=== PATIENT | male | born 1945 ===

== ENCOUNTER 2021-01-22 07:53 | Outpatient (REF) | payer MEDICARE, SELFPAY ==
[2021-01-22 08:41] LABS: MANUAL DIFF FLAG NO
[2021-01-22 08:49] LABS: Basophils Percent Auto 0.4 % (0-2); Eosinophils Absolute Auto 0.2 X10*3/uL (0.0-0.4); Eosinophils Percent Auto 2.9 % (0-4); Hematocrit 40.3 % (42-52); Hemoglobin 13.1 g/dl (14.0-18.0); Imm Gran Abs Auto 0.02 X10*3/uL (0.00-0.03); Imm Gran Pct Auto 0.3 % (0.0-0.4); Lymphocytes Absolute Auto 2.2 X10*3/uL (1.2-4.9); Lymphocytes Percent Auto 31.6 % (20-40); Mean Corpuscular HGB Conc 32.5 g/dl (31.0-36.0); Mean Corpuscular Hemoglobin 29.2 pg (27.0-33.0); Mean Platelet Volume 11.6 fL (9.4-12.4); Monocytes Absolute Auto 0.5 X10*3/uL (0.1-1.2); Neutrophils Percent Auto 57.8 % (45-73); Platelet Count 207 X10*3/uL (160-400); Red Blood Count 4.48 X10*6/uL (4.60-5.80); Red Cell Distribution Width 12.7 % (11.0-16.0)
[2021-01-22 09:26] LABS: Alanine Aminotransferase 23 U/L (0-40); Albumin Level 4.4 g/dL (3.5-5.0); Anion Gap 12 (12-20); Aspartate Amino Transferase 24 U/L (5-37); Bilirubin Total 0.6 mg/dL (0.0-1.0); Blood Urea Nitrogen 16 mg/dL (9-16); Calcium 9.1 mg/dL (8.4-10.2); Carbon Dioxide 28 mmol/L (22-29); Chloride 106 mmol/L (96-108); Estimated Glomerular Filt Rate > 60; Glucose Random 100 mg/dL (60-115); Sodium 142 mmol/L (135-145); Total Protein 7.2 g/dL (6.5-8.0)
[2021-01-22 09:27] LABS: Alkaline Phosphatase 91 U/L (39-117); Cholesterol 217 mg/dL; HDL Cholesterol 53 mg/dL; LDL Cholesterol Calculated 128 mg/dl; Triglycerides 184 mg/dL
[2021-01-22 09:39] LABS: Prostate Specific Antigen 3.85 ng/mL (<0.05-4.0)
== END 2021-01-22 07:54 | disposition home or self-care (01) ==
LOC: HO.LAB 07:53
PROVIDERS: PCP Internal Medicine; Visit Provider Internal Medicine
DX: Z00.00 Encounter for general adult medical examination without abnormal findings (principal); Z12.5 Encounter for screening for malignant neoplasm of prostate; E78.00 Pure hypercholesterolemia, unspecified; I10 Essential (primary) hypertension; N40.0 Benign prostatic hyperplasia without lower urinary tract symptoms
CPT/HCPCS: 36415; 80053; 80061; 84153; 85025

== ENCOUNTER 2021-12-25 10:40 | Outpatient (REF) | payer MEDICARE, SELFPAY ==
[2021-12-25 10:58] LABS: MANUAL DIFF FLAG NO
[2021-12-25 11:27] LABS: Basophils Percent Auto 0.4 % (0-2); Eosinophils Absolute Auto 0.2 X10*3/uL (0.0-0.4); Hematocrit 41.4 % (42.0-52.0); Imm Gran Abs Auto 0.03 X10*3/uL (0.00-0.03); Imm Gran Pct Auto 0.4 % (0.0-0.4); Lymphocytes Absolute Auto 2.3 X10*3/uL (1.2-4.9); Lymphocytes Percent Auto 29.1 % (20-40); Mean Corpuscular HGB Conc 33.8 g/dl (31.0-36.0); Mean Corpuscular Volume 88.7 fL (80.0-98.0); Mean Platelet Volume 11.9 fL (9.4-12.4); Monocytes Absolute Auto 0.5 X10*3/uL (0.1-1.2); Monocytes Percent Auto 6.4 % (2-11); Neutrophils Absolute Auto 4.7 x10*3/uL (2.0-8.3); Neutrophils Percent Auto 60.7 % (45-73); Platelet Count 206 X10*3/uL (160-400); Red Blood Count 4.67 X10*6/uL (4.60-5.80); Red Cell Distribution Width 12.5 % (11.0-16.0); White Blood Count 7.8 X10*3/uL (4.8-10.8)
[2021-12-25 11:51] LABS: Alanine Aminotransferase 22 U/L (0-40); Albumin Level 4.2 g/dL (3.5-5.0); Alkaline Phosphatase 100 U/L (39-117); Anion Gap 11 (12-20); Aspartate Amino Transferase 23 U/L (5-37); Bilirubin Total 0.4 mg/dL (0.0-1.0); Blood Urea Nitrogen 19 mg/dL (9-16); Calcium 9.4 mg/dL (8.4-10.2); Carbon Dioxide 29 mmol/L (22-29); Chloride 106 mmol/L (96-108); Cholesterol 224 mg/dL; Estimated Glomerular Filt Rate > 60; Glucose Random 99 mg/dL (60-115); HDL Cholesterol 45 mg/dL; LDL Cholesterol Calculated 154 mg/dl; Potassium 4.3 mmol/L (3.3-5.1); Sodium 142 mmol/L (135-145); Total Protein 7.3 g/dL (6.5-8.0); Triglycerides 126 mg/dL
[2021-12-25 12:31] LABS: Vitamin B12 222 pg/mL (200-900)
== END 2021-12-25 10:41 | disposition home or self-care (01) ==
LOC: HO.LAB 10:40
PROVIDERS: PCP Internal Medicine; Visit Provider Internal Medicine
DX: E78.00 Pure hypercholesterolemia, unspecified (principal); I10 Essential (primary) hypertension
CPT/HCPCS: 36415; 80053; 80061; 82607; 85025

== ENCOUNTER 2022-04-07 07:25 | Outpatient (REF) | payer MEDICARE, SELFPAY ==
[2022-04-07 08:57] LABS: Alanine Aminotransferase 33 U/L (0-40); Albumin Level 4.1 g/dL (3.5-5.0); Alkaline Phosphatase 114 U/L (39-117); Anion Gap 11 (12-20); Aspartate Amino Transferase 27 U/L (5-37); Bilirubin Total 0.3 mg/dL (0.0-1.0); Blood Urea Nitrogen 23 mg/dL (9-16); Calcium 9.1 mg/dL (8.4-10.2); Carbon Dioxide 26 mmol/L (22-29); Chloride 109 mmol/L (96-108); Cholesterol 157 mg/dL; Estimated Glomerular Filt Rate > 60; Glucose Random 99 mg/dL (60-115); HDL Cholesterol 51 mg/dL; LDL Cholesterol Calculated 95 mg/dl; Potassium 3.9 mmol/L (3.3-5.1); Sodium 142 mmol/L (135-145); Total Protein 6.7 g/dL (6.5-8.0); Triglycerides 57 mg/dL
[2022-04-07 09:20] LABS: Prostate Specific Antigen 3.48 ng/mL (<0.05-4.0)
== END 2022-04-07 07:26 | disposition home or self-care (01) ==
LOC: HO.LAB 07:25
PROVIDERS: PCP Internal Medicine; Visit Provider Internal Medicine
DX: Z00.00 Encounter for general adult medical examination without abnormal findings (principal); Z12.5 Encounter for screening for malignant neoplasm of prostate; E78.00 Pure hypercholesterolemia, unspecified; I10 Essential (primary) hypertension; N40.0 Benign prostatic hyperplasia without lower urinary tract symptoms
CPT/HCPCS: 36415; 80053; 80061; 84153

== ENCOUNTER 2022-07-01 09:56 | Outpatient (AMB) | payer MEDICARE, SELFPAY ==
--- NOTE | 2022-06-30 15:15 | MHC.OFFVIS ---
Intake Intake Visit Reasons: BPH w/ Luts Intake Note: Patient is present for BPH W lower urinary tract symptoms Patient is on tamsulosin Post Void Residual reports: 0ml Ginning Operator Required: No Accompanied by: Self / Same As Patient Allergies No Known Allergies Allergy (Verified 01/05/24 11:35) HPI HPI Comments History of Present Illness Details Philippe is a pleasant male. He is a patient of Dr. Ordonez. He is seen for the following urologic conditions - lower urinary tract symptoms Lower urinary tract symptoms Urinary parameters includes nocturia times 3-4, urge, stream is okay Current therapy tamsulosin intermittent PSA 04/18 3.5 Encouraged to take his Flomax every evening Review in 3 months FOR[facility]LY [facility] Medical History (Updated 12/22/23 @ 15:29 by LEONCIO Bartlett) High cholesterol BPH (benign prostatic hyperplasia) GERD (gastroesophageal reflux disease) HTN (hypertension) Surgical History (Updated 01/05/24 @ 11:35 by Eliane Kelley) History of prostate surgery Hx of exploratory laparotomy History of laryngoscopy H/O colonoscopy Social History 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 Do you presently have visiting nurse or other home services: No Patient Tobacco Use Status: Never used Tobacco Review of Systems Const Denies chills and Denies fever(s) Card Reports no additional complaints and Denies syncope Resp Denies cough GI Denies abdominal pain and Denies heartburn Reports as per HPI and Denies change in libido Neuro Denies syncope Psych Denies change in libido Endo Denies change in libido Physical Exam Const General: cooperative, healthy appearing, comfortable and no acute distress Orientation/consciousness: patient oriented x3 HEENT Face and sinus: Yes normal facial exam Mouth: moist mucous membranes Neck Neck: Yes normal visual inspection, Yes full ROM and Yes trachea midline Chest Chest palpation & inspection: normal inspection of the chest Resp Effort & Inspection: normal respiratory effort, able to speak in complete sentences and no respiratory distress GI Inspection: Yes normal to inspection Back/Spine/Pelvis Cervical Spine: normal cervical lordosis Thoracic/Lumbar Spine: thoracic and lumbar spine normal to inspection Skin General skin exam: no rashes or lesions noted Neuro General: patient oriented x3, gait normal, tone normal and moves all extremities Extrem General: Yes normal to inspection and Yes capillary refill normal Office Procedures Post Void Residual Post Residual Void Post Void Residual (PVR): 0 52363-[id number] Void Residual by ultrasound Results AMB Urinalysis, Automated UA Leukoctes 0 Garrett/uL Last Edit by Abbey Long, A on 07/01/22 10:26 UA Nitrite Negative Last Edit by Abbey Long, A on 07/01/22 10:26 UA Urobilinogen 0.2 mg/dL Last Edit by Abbey Long A on 07/01/22 10:26 UA Protein 0 mg/dL Last Edit by Abbey Long, A on 07/01/22 10:26 UA pH 6.0 Last Edit by Abbey Long, A on 07/01/22 10:26 UA Blood 0 Moo/uL Last Edit by Abbey Long, A on 07/01/22 10:26 UA Specific [place] 1.025 Last Edit by Abbey Long A on 07/01/22 10:26 UA Ketone Negative Last Edit by Abbey Long, A on 07/01/22 10:26 UA Bilirubin 0 mg/dL Last Edit by Abbey Long A on 07/01/22 10:26 UA Glucose 0 mg/dL Last Edit by Abbey Long, A on 07/01/22 10:26 Results Reviewed Results Reviewed: Laboratory Last Values Urine pH (Auto) 6.0 07/01/22 10:18 Specific [place] (Auto) 1.025 07/01/22 10:18 Urine Protein (Auto) 0 mg/dL 07/01/22 10:18 Glucose (UA)(Auto) 0 mg/dL 07/01/22 10:18 Urine Ketones (Auto) Negative 07/01/22 10:18 Urine Blood (Auto) 0 Moo/uL 07/01/22 10:18 Urine Nitrite (Auto) Negative 07/01/22 10:18 Urine Bilirubin (Auto) 0 mg/dL 07/01/22 10:18 Urine Urobilinogen (Auto) 0.2 mg/dL 07/01/22 10:18 Leukocyte Esterase (Auto) 0 Garrett/uL 07/01/22 10:18 Assessment & Plan Assessment & Plan (1) Urinary urgency: Code(s): R39.15 - Urgency of urination (2) Nocturia more than twice per night: Code(s): R35.1 - Nocturia (3) BPH (benign prostatic hyperplasia): Code(s): N40.0 - Benign prostatic hyperplasia without lower urinary tract symptoms Plan Trial medications three-month follow-up Orders: Orders AMB Post Void Residual by ultrasound 07/01/22 N40.0 - Benign prostatic hyperplasia without lower urinary tract symptoms AMB Urinalysis Automated 07/01/22 Z13.9 - Encounter for screening, unspecified Patient Instructions: Imaging studies, laboratory and physical exam results were discussed and reviewed in detail. No major barriers to patient understanding were identified. An opportunity to ask questions regarding the treatment plan was provided. All questions were answered. The patient expressed understanding and agreement with the above treatment plan. The patient is aware they should contact our office by phone for worsening of their current condition or the appearance of new urologic symptoms. Compliance is encouraged with any medications and followup testing that is ordered. It is a privilege to participate in the urologic care of your patient. If you have any questions or concerns regarding treatment for the above conditions, or other urologic issues, please do not hesitate to contact me. The office telephone contact is [phone]. This note is constructed using voice recognition software. While every effort has been made to ensure accuracy spout positioner errors may have been included. Yours sincerely, Dr Mandeep Espana MD, [facility] - Urology Providers of Expert, Compassionate Care for the Genitourinary System Coding Level of Care Code Est Pt Level 4 (93086) Diagnoses Urinary urgency R39.15 Nocturia more than twice per night R35.1 BPH (benign prostatic hyperplasia) N40.0 CPT Codes Post Residual Void - PVR CPT Code: 24542-Crah Void Residual by ultrasound ([id number])
== END 2022-07-01 11:05 | disposition home or self-care (01) ==
LOC: HO.HUSH 09:56
PROVIDERS: PCP Internal Medicine; Visit Provider Urology
DX: R39.15 Urgency of urination (principal); R35.1 Nocturia; N40.0 Benign prostatic hyperplasia without lower urinary tract symptoms
CPT/HCPCS: 99499

== ENCOUNTER → 2022-07-01 09:56 | Outpatient (BNVA) | payer MEDICARE, SELFPAY | PROVIDERS: PCP Internal Medicine; Visit Provider Urology | DX: Z13.89 Encounter for screening for other disorder (principal) | CPT/HCPCS: 51798 ==

== ENCOUNTER → 2023-02-03 08:34 | Outpatient (BNVA) | payer MEDICARE, SELFPAY | PROVIDERS: PCP Internal Medicine; Visit Provider Urology | DX: N40.1 Benign prostatic hyperplasia with lower urinary tract symptoms (principal); R39.11 Hesitancy of micturition; R35.1 Nocturia | CPT/HCPCS: 51798; 99212 ==

== ENCOUNTER → 2023-04-07 09:45 | Outpatient (BNVA) | payer MEDICARE, SELFPAY | PROVIDERS: PCP Internal Medicine; Visit Provider Urology | DX: N40.1 Benign prostatic hyperplasia with lower urinary tract symptoms (principal); N13.8 Other obstructive and reflux uropathy; R35.1 Nocturia; R39.11 Hesitancy of micturition | CPT/HCPCS: 52000; 99212 ==

== ENCOUNTER 2023-06-16 10:33 | Outpatient (AMB) | payer MEDICARE, SELFPAY ==
--- NOTE | 2023-06-16 10:35 | MHC.OFFVIS ---
Intake Intake Visit Reasons: H&P (Greenlight 07/25) Intake Note: Patient presents for H&P Green light procedure Urology Medications: Terazosin, Finasteride Antibiotic Allergy: None Blood Thinner: none PVR:55ml's Tool Liaison Required: No Accompanied by: Self / Same As Patient Allergies No Known Allergies Allergy (Verified 06/16/23 10:36) HPI HPI Comments History of Present Illness Details Philippe is a pleasant male. He is a patient of Dr. Ordonez. He is seen for the following urologic conditions - lower urinary tract symptoms Preop assessment Primary nocturia times 3-4 Urinary hesitancy Minimal benefit changing from tamsulosin to terazosin Cystoscopy mild trilobar hypertrophy Recommend GreenLight laser Not much different after starting finasteride Questions answered around GreenLight laser Lower urinary tract symptoms Urinary parameters includes nocturia times 3-4, urge, stream is okay Current therapy tamsulosin intermittent PSA 04/18 3.5 PFSH Medical History (Updated 02/03/23 @ 09:10 by Mandeep Espana MD) BPH (benign prostatic hyperplasia) GERD (gastroesophageal reflux disease) High cholesterol HTN (hypertension) Review of Systems Const Denies chills and Denies fever(s) Card Reports no additional complaints and Denies syncope Resp Denies cough GI Denies abdominal pain and Denies heartburn Reports as per HPI and Denies change in libido Neuro Denies syncope Psych Denies change in libido Endo Denies change in libido Physical Exam Const General: cooperative, healthy appearing, comfortable and no acute distress Orientation/consciousness: patient oriented x3 HEENT Face and sinus: Yes normal facial exam Mouth: moist mucous membranes Neck Neck: Yes normal visual inspection, Yes full ROM and Yes trachea midline Chest Chest palpation & inspection: normal inspection of the chest Resp Effort & Inspection: normal respiratory effort, able to speak in complete sentences and no respiratory distress GI Inspection: Yes normal to inspection Back/Spine/Pelvis Cervical Spine: normal cervical lordosis Thoracic/Lumbar Spine: thoracic and lumbar spine normal to inspection Skin General skin exam: no rashes or lesions noted Neuro General: patient oriented x3, gait normal, tone normal and moves all extremities Extrem General: Yes normal to inspection and Yes capillary refill normal Office Procedures Post Void Residual Post Residual Void Post Void Residual (PVR): 55 [id number] Void Residual by ultrasound Results AMB Urinalysis, Automated UA Leukoctes 0 Garrett/uL Last Edit by Enzo Bradshaw on 06/16/23 11:00 UA Nitrite Negative Last Edit by Enzo Bradshaw on 06/16/23 11:00 UA Urobilinogen 0.2 mg/dL Last Edit by Enzo Bradshaw on 06/16/23 11:00 UA Protein 15 mg/dL Last Edit by Enzo Bradshaw on 06/16/23 11:00 UA pH 5.5 Last Edit by Enzo Augustinamax on 06/16/23 11:00 UA Blood 25 Moo/uL Last Edit by Enzo Bradshaw on 06/16/23 11:00 UA Specific [place] 1.025 Last Edit by Enzo Bradshaw on 06/16/23 11:00 UA Ketone Negative Last Edit by Enzo Bradshaw on 06/16/23 11:00 UA Bilirubin 0 mg/dL Last Edit by Enzo Bradshaw on 06/16/23 11:00 UA Glucose 0 mg/dL Last Edit by Enzo Bradshaw on 06/16/23 11:00 Results Reviewed Results Reviewed: Laboratory Last Values Urine pH (Auto) 5.5 06/16/23 10:47 Specific [place] (Auto) 1.025 06/16/23 10:47 Urine Protein (Auto) 15 mg/dL 06/16/23 10:47 Glucose (UA)(Auto) 0 mg/dL 06/16/23 10:47 Urine Ketones (Auto) Negative 06/16/23 10:47 Urine Blood (Auto) 25 Moo/uL 06/16/23 10:47 Urine Nitrite (Auto) Negative 06/16/23 10:47 Urine Bilirubin (Auto) 0 mg/dL 06/16/23 10:47 Urine Urobilinogen (Auto) 0.2 mg/dL 06/16/23 10:47 Leukocyte Esterase (Auto) 0 Garrett/uL 06/16/23 10:47 Assessment & Plan Assessment & Plan (1) Urinary hesitancy: Code(s): R39.11 - Hesitancy of micturition (2) BPH (benign prostatic hyperplasia): Code(s): N40.0 - Benign prostatic hyperplasia without lower urinary tract symptoms Plan Six month follow-up Orders: Orders Urine Cytology Today N40.0 - Benign prostatic hyperplasia without lower urinary tract symptoms AMB Urinalysis Automated Today Z13.9 - Encounter for screening, unspecified AMB Post Void Residual by ultrasound Today N40.0 - Benign prostatic hyperplasia without lower urinary tract symptoms Patient Instructions: Imaging studies, laboratory and physical exam results were discussed and reviewed in detail. No major barriers to patient understanding were identified. An opportunity to ask questions regarding the treatment plan was provided. All questions were answered. The patient expressed understanding and agreement with the above treatment plan. The patient is aware they should contact our office by phone for worsening of their current condition or the appearance of new urologic symptoms. Compliance is encouraged with any medications and followup testing that is ordered. It is a privilege to participate in the urologic care of your patient. If you have any questions or concerns regarding treatment for the above conditions, or other urologic issues, please do not hesitate to contact me. The office telephone contact is [phone]. This note is constructed using voice recognition software. While every effort has been made to ensure accuracy human resources services specialist errors may have been included. Yours sincerely, Dr Mandeep Espana MD, [facility] - Urology Providers of Expert, Compassionate Care for the Genitourinary System Coding Level of Care Code Est Pt Level 3 (31156) Diagnoses Urinary hesitancy R39.11 BPH (benign prostatic hyperplasia) N40.0 CPT Codes Post Residual Void - PVR CPT Code: 09998-Oicg Void Residual by ultrasound ([id number])
== END 2023-06-16 11:29 | disposition home or self-care (01) ==
PROVIDERS: Visit Provider Urology
DX: R39.11 Hesitancy of micturition (principal); N40.0 Benign prostatic hyperplasia without lower urinary tract symptoms
CPT/HCPCS: 99213

== ENCOUNTER 2023-06-16 10:33 | Outpatient (REF) | payer MEDICARE, SELFPAY ==
[2023-06-16 18:07] LABS: Urine Cytology See Pathology rpt
== END 2023-06-16 10:34 | disposition home or self-care (01) ==
LOC: HO.LNP 10:33
PROVIDERS: Visit Provider Urology
DX: N40.0 Benign prostatic hyperplasia without lower urinary tract symptoms (principal); R39.11 Hesitancy of micturition
CPT/HCPCS: 51798; 88112; 99212

== ENCOUNTER 2023-07-04 06:00 | Day surgery (SDC) | payer MEDICARE, SELFPAY ==
[2023-06-29 11:58] VITALS: BMI 25.7
[2023-07-04] VITALS (8 sets, daily range): BP systolic 157–177; BP diastolic 68–80; PULSE 53–68; RESP 14–20; TEMP 36.2–36.8; O2SAT 94–100
--- NOTE | 2023-07-04 07:44 | MHC.SHP ---
Pre-Procedural Eval Section A Date of Service: 07/04/23 The patient is an INPATIENT: No Changes since office visit: No Cold of Flu in the past 2 weeks, No New Medical Problems, No Changes in Medication and No Patient answered all questions The History & Physical has been completed within 30 days and I have reviewed it.: Yes Section B Chief Complaint: Benign prostatic hyperplasia without lower urinary Relevant Social History: None Present Medications: None Medical History: No relevant PMH History of Previous Operations: No relevant previous surgery Allergies: Allergies Allergy/AdvReac Type Severity Reaction Status Date / Time No Known Allergies Allergy Verified 06/16/23 10:36 Review of Systems Sugical H&P ROS: Negative: Constitution, Cardiovascular, Respiratory, Neurological, Psychiatric, Hem-Onc, Allergic/Immunologic, Gastrointestinal, Genitourinary, Musculoskeletal, Integumentary, Endocrine and Eyes/Ears/Nose/Throat Exam Surgical H&P Exam: Normal: HEENT, Normal: Heart, Normal: Lungs, Normal: Extremities, Normal: Abdomen, Normal: Skin and Normal: Neurological Plan Diagnosis/Plan: Unchanged (laser prostatectomy) I have reviewed the history and physical and performed a pertinent physical examination on my patient. No changes have occurred unless specified. Time Spent With Patient Time: Total time managing care of this patient today ____ minutes.
--- NOTE | 2023-07-04 08:05 | HO.ANESPROP2 ---
[facility] Active Problems Active Problems: All Active Problems (Updated 02/03/23 @ 09:10 by Mandeep Espana MD) Urinary hesitancy (Acute) Nocturia more than twice per night (Acute) BPH (benign prostatic hyperplasia) (Acute) Past Medical History Medical History (Updated 02/03/23 @ 09:10 by Mandeep Espana MD) BPH (benign prostatic hyperplasia) GERD (gastroesophageal reflux disease) High cholesterol HTN (hypertension) Family History Family history of problems with anesthesia: No Surgical History Surgical History (Updated 06/29/23 @ 11:51 by Nell Mireles RN) H/O colonoscopy History of laryngoscopy Hx of exploratory laparotomy History of Problems with Anesthesia: No Social History Social History 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 If so, by whom?: No Are you DNR?: No Advance Directives: No Advance Directives Information Provided: Yes Recently lost weight without trying: No Eating poorly because of decreased appetite: No Nutrition Risks: No Nutritional Risk Meds Allergies Allergy/AdvReac Type Severity Reaction Status Date / Time No Known Allergies Allergy Verified 06/16/23 10:36 Active Medications: Current Medications Levofloxacin (Levaquin) 500 mg in 100 mls @ 100 mls/hr IV PREOP ONE Stop: 07/04/23 08:41 Home Medications Medication Instructions Recorded Confirmed Last Taken Type atorvastatin 20 mg tablet 20 mg PO DAILY 06/30/22 06/29/23 Unknown History cyclobenzaprine 5 mg tablet 5 mg PO BEDTIME 06/30/22 02/03/23 Unknown History diclofenac sodium 75 mg 75 mg PO BID 06/30/22 02/03/23 Unknown History tablet,delayed release losartan 100 1 tab PO DAILY 06/30/22 06/29/23 Unknown History mg-hydrochlorothiazide 25 mg tablet tamsulosin 0.4 mg capsule 0.4 mg PO DAILY 06/16/23 06/29/23 Unknown History Exam Exam Date and Time: July 04, 2023 0805 Height,Weight and Vital Signs: Height 5 ft 4 in Weight 68.039 kg Last Vital Signs Temp 97.7 F 07/04/23 06:44 Pulse 55 07/04/23 06:44 Resp 18 07/04/23 06:44 BP 168/80 H 07/04/23 06:44 Pulse Ox 99 07/04/23 06:44 O2 Del Method Room Air 07/04/23 06:44 Airway Mallampati Class: II TM Dist: >3cm Neck ROM: Full Partial: Upper Assessment and Plan Assessment Anesthesia Assessment: Anesthesia Plan Discussed and Chart Reviewed Final Anesthetic Review Family History of Problems with Anesthesia: No History of Problems with Anesthesia: No NPO: Yes ASA Class: II Final Preanesthetic Review: No Changes in Pt Med Stat, Meds/Allgs Chart Reviewed, Consent Obtained/Reviewed and Anes Risks/Benef Reviewed Patient Risk: Intermediate Procedure Risk: Low Anesthetic Plan Anesthetic Plan: GA Disposition: Standard PACU
--- NOTE | 2023-07-04 08:41 | P.OP_ITS ---
Operative Note Operative Note Date of Service: 07/04/23 Narrative: PreOperative Diagnosis: Bladder outlet obstruction Post Operative Diagnosis: Bladder outlet obstruction Procedure: GreenLight Laser Enucleation of the prostate Surgeon: Dr Mandeep Espana Anesthesia: General Indications for procedure: [] History of bladder outlet obstruction. Treated with alpha-burt and other medications. Still with symptoms. On cystoscopy in office has [trilobar prostate] [tight bladder neck]. Recommendation for prostate procedure with laser enucleation of prostate. Risks and benefits have been discussed. Focus was placed on development of retrograde ejaculation which is a normal part of this procedure. Procedure: After informed consent was verified the patient was brought to the operating room and placed in a supine position. Anesthesia was administered per protocol. Patient was placed in modified dorsal lithotomy position and prepped and draped in a sterile fashion. Safety pause time-out was confirmed. Antibiotics have been given. A Twenty-four Yoruba laser cystoscope was inserted per urethra. No abnormalities were found of the anterior and bulbar urethra. The bladder was examined and both ureteric orifices were seen in their normal positions away from the area of interest. however they were closer than typical and great care was taken throughout the procedure to ensure they remained visible. Using a GreenLight laser with settings of 80 w incisions were made at the 5 and 7 o'clock position. The incisions were taken down from the bladder neck down to the level of the veru. These were gradually deepened in order to define the lateral aspects of the median lobe area. Once clearly defined they will also extended in the lateral directions in order to create a deep groove. Minimal median lobe was apparent. Decision was made to focus on the lateral l obe areas. Once the median lobe area had been cleared attention was directed to the lateral lobes. Starting with the patient's left lateral lobe. First the 05:00 o'clock groove was further developed. This was moved in the lateral direction to undermine the tissue on the lateral side running from the bladder neck to the prostate apex. Focus was then placed on the laser at the 1 o'clock position to developing a secondary groove down to the level of bladder fibers. The creation of a second deep groove defined a segment of intervening tissue similar to a slice of orange. At the apex of the prostate the 2 grooves were linked the us releasing the intervening tissue. This tissue was then removed with a combination of enucleation and ablation working from the apex toward the bladder neck. A similar procedure was repeated on the patient's right-hand side. The only differences being the position of the lateral groove at he 7 'oclock positioin and the secondary groove at the 11 o'clock position, Otherwise the procedure was developed in a mirror fashion. After the majority of tissue had been debulked remnant tissue was ablated with the side fire laser and the curve of the prostate followed up each side wall clearly defining the anterior remnant strip that remained between the 11 and 1 o'clock positions. In this case the anterior tissue protruded into the prostatic fossa and was partially ablated with the laser When this was had been completed debris and pieces of prostate were removed from the bladder with irrigation. Both ureteric orifices were reviewed again in shown to be patent in away from any areas of energy damage. The apical area was reviewed in any stray ooze was controlled. A 22 Yoruba 30 cc balloon Aguilar catheter was placed over a stylet into the bladder. Clear efflux was obtained upopn irrigation with a Yin piston syringe. 30 cc was placed in the balloon and gentle traction was placed. A snap was used to hold tension on the catheter to control bleeding during patient moved and transported. A drainage bag was placed. Once transportation is complete to the PACU the snap will be removed. The patient tolerated the procedure well, he was extubated in the operating and transferred in a stable condition to the recovery area. Total Power 118 kW Lasing time 17:20 Pathology: Prostate tissue Drains: Aguilar catheter
[2023-07-04] MEDS: fentaNYL citrate/PF 100 MCG/2 ML VIAL 50 MCG IVPUSH (08:56)
[2023-07-04] MEDS: oxyCODONE HCl Immed Release 5 MG TABLET PO (08:59)
== END 2023-07-04 10:41 | disposition home or self-care (01) ==
PROVIDERS: PCP Internal Medicine; Visit Provider Urology
PROC: (CPT 52648; principal; 2023-07-04 07:30)
DX: N40.1 Benign prostatic hyperplasia with lower urinary tract symptoms (principal); N13.8 Other obstructive and reflux uropathy; R39.11 Hesitancy of micturition; R35.1 Nocturia; I10 Essential (primary) hypertension; E78.00 Pure hypercholesterolemia, unspecified; K21.9 Gastro-esophageal reflux disease without esophagitis
CPT/HCPCS: 52649; 88305; J1100; J1956; J2250; J2405; J3010

== ENCOUNTER → 2023-07-04 06:00 | Outpatient (BNV) | payer MEDICARE, SELFPAY | PROVIDERS: PCP Internal Medicine; Visit Provider Urology | DX: N32.0 Bladder-neck obstruction (principal) | CPT/HCPCS: 52649 ==

== ENCOUNTER 2023-07-20 11:12 | Outpatient (REF) | payer MEDICARE, SELFPAY ==
[2023-07-20 12:33] LABS: Appearance Urine Cloudy; Color Urine Yellow; Glucose Urine UA Negative (Negative); Leukocyte Esterase Urine Small (1+) (Negative); Nitrite Urine Negative (Negative); PH 5.5 (5.0-9.0); UMIC TRIGGER UA YES; Urine Blood Large (3+) (Negative); Urine Ketones Negative (Negative); Urine Protein 100 (2+) mg/dL (Neg-Trace)
[2023-07-20 12:35] LABS: Bacteria Urine None Seen (None Seen); Hyaline Casts Urine 0-2 /LPF (0-2); RBC Urine >20 /HPF (0-2); Squamous Epithelial Cell Urine 0-2 /HPF (0-2); WBC Urine 21-50 /HPF (0-5)
== END 2023-07-20 11:13 | disposition home or self-care (01) ==
LOC: HO.LAB 11:12
PROVIDERS: PCP Internal Medicine; Visit Provider Nurse Practitioner Family
DX: N40.0 Benign prostatic hyperplasia without lower urinary tract symptoms (principal)
CPT/HCPCS: 81001; 87086

== ENCOUNTER 2023-08-18 09:02 | Outpatient (AMB) | payer MEDICARE, SELFPAY ==
--- NOTE | 2023-08-18 09:11 | A.OFFVIS_ITS ---
Intake Intake Visit Reasons: 6w post op Intake Note: Patient is present for Follow Up Post Op Urology Med: Terazosin, Tamsulosin, Finasteride Antibiotic Allergy: None Blood Thinner: None Pharmacy: [facility] PVR:60 Allergies No Known Allergies Allergy (Verified 08/18/23 09:17) HPI HPI Comments History of Present Illness Details Philippe is a pleasant male. He is a patient of Dr. Ordonez. He is seen for the following urologic conditions - lower urinary tract symptoms PVR check for incomplete bladder emptying following procedure PVR 60 cc Nocturia x3 which is improving Good stream Happy with procedure Six month follow-up PSA May try coming off medications Lower urinary tract symptoms Urinary parameters includes nocturia times 3-4, urge, stream is okay Current therapy terazosin - intervention 06/19 GreenLight laser PSA 04/18 3.5 PFSH Medical History High cholesterol BPH (benign prostatic hyperplasia) GERD (gastroesophageal reflux disease) HTN (hypertension) Surgical History Hx of exploratory laparotomy History of laryngoscopy H/O colonoscopy Social History Are you a primary home care associate to a significant other at home: Yes Do you presently have visiting nurse or other home services: No Patient Tobacco Use Status: Never used Tobacco Review of Systems Const Denies chills and Denies fever(s) Card Reports no additional complaints and Denies syncope Resp Denies cough GI Denies abdominal pain and Denies heartburn Reports as per HPI and Denies change in libido Neuro Denies syncope Psych Denies change in libido Endo Denies change in libido Physical Exam Const General: cooperative, healthy appearing, comfortable and no acute distress Orientation/consciousness: patient oriented x3 HEENT Face and sinus: Yes normal facial exam Mouth: moist mucous membranes Neck Neck: Yes normal visual inspection, Yes full ROM and Yes trachea midline Chest Chest palpation & inspection: normal inspection of the chest Resp Effort & Inspection: normal respiratory effort, able to speak in complete sentences and no respiratory distress GI Inspection: Yes normal to inspection Back/Spine/Pelvis Cervical Spine: normal cervical lordosis Thoracic/Lumbar Spine: thoracic and lumbar spine normal to inspection Skin General skin exam: no rashes or lesions noted Neuro General: patient oriented x3, gait normal, tone normal and moves all extremities Extrem General: Yes normal to inspection and Yes capillary refill normal Office Procedures Post Void Residual Post Residual Void Post Void Residual (PVR): 60 [id number] Void Residual by ultrasound Results AMB Urinalysis, Automated UA Leukoctes 125 Garrett/uL Last Edit by Abbey Long [facility] on 08/18/23 09:21 UA Nitrite Negative Last Edit by Abbey Long [facility] on 08/18/23 09:21 UA Urobilinogen 0.2 mg/dL Last Edit by Abbey Long A on 08/18/23 09:2 1 UA Protein 100 mg/dL Last Edit by Abbey Long [facility] on 08/18/23 09:21 UA pH 6.0 Last Edit by Abbey Long A on 08/18/23 09:21 UA Blood 200 Moo/uL Last Edit by Abbey Long [facility] on 08/18/23 09:21 UA Specific [place] 1.030 Last Edit by Abbey Long A on 08/18/23 09: 21 UA Ketone Negative Last Edit by Abbey Long [facility] on 08/18/23 09:21 UA Bilirubin 0 mg/dL Last Edit by Abbey Long [facility] on 08/18/23 09:21 UA Glucose 0 mg/dL Last Edit by Abbey Long [facility] on 08/18/23 09:21 Results Reviewed Results Reviewed: Laboratory Last Values Urine pH (Auto) 6.0 08/18/23 09:18 Specific [place] (Auto) 1.030 08/18/23 09:18 Urine Protein (Auto) 100 mg/dL 08/18/23 09:18 Glucose (UA)(Auto) 0 mg/dL 08/18/23 09:18 Urine Ketones (Auto) Negative 08/18/23 09:18 Urine Blood (Auto) 200 Moo/uL 08/18/23 09:18 Urine Nitrite (Auto) Negative 08/18/23 09:18 Urine Bilirubin (Auto) 0 mg/dL 08/18/23 09:18 Urine Urobilinogen (Auto) 0.2 mg/dL 08/18/23 09:18 Leukocyte Esterase (Auto) 125 Garrett/uL 08/18/23 09:18 Assessment & Plan Assessment & Plan (1) BPH (benign prostatic hyperplasia): Code(s): N40.0 - Benign prostatic hyperplasia without lower urinary tract symptoms (2) Nocturia more than twice per night: Code(s): R35.1 - Nocturia Plan Six month follow-up PSA PVR Orders: Orders AMB Post Void Residual by ultrasound Today N40.0 - Benign prostatic hyperplasia without lower urinary tract symptoms AMB Urinalysis Automated Today Z13.9 - Encounter for screening, unspecified Prostate Specific Antigen 6 Months N40.0 - Benign prostatic hyperplasia without lower urinary tract symptoms Patient Instructions: Imaging studies, laboratory and physical exam results were discussed and reviewed in detail. No major barriers to patient understanding were identified. An opportunity to ask questions regarding the treatment plan was provided. All questions were answered. The patient expressed understanding and agreement with the above treatment plan. The patient is aware they should contact our office by phone for worsening of their current condition or the appearance of new urologic symptoms. Compliance is encouraged with any medications and followup testing that is ordered. It is a privilege to participate in the urologic care of your patient. If you have any questions or concerns regarding treatment for the above conditions, or other urologic issues, please do not hesitate to contact me. The office telephone contact is [phone]. This note is constructed using voice recognition software. While every effort has been made to ensure accuracy ball maker errors may have been included. Yours sincerely, Dr Mandeep Espana MD, [facility] - Urology Providers of Expert, Compassionate Care for the Genitourinary System Coding Level of Care Code Est Pt Level 3 (69076) Diagnoses BPH (benign prostatic hyperplasia) N40.0 Nocturia more than twice per night R35.1 CPT Codes Post Residual Void - PVR CPT Code: 60587-Iybx Void Residual by ultrasound ([id number])
== END 2023-08-18 09:35 | disposition home or self-care (01) ==
PROVIDERS: PCP Internal Medicine; Visit Provider Urology
DX: N40.0 Benign prostatic hyperplasia without lower urinary tract symptoms (principal); R35.1 Nocturia; Z13.9 Encounter for screening, unspecified
CPT/HCPCS: 99024

== ENCOUNTER → 2023-08-18 09:02 | Outpatient (BNVA) | payer MEDICARE, SELFPAY | PROVIDERS: PCP Internal Medicine; Visit Provider Urology | DX: N40.1 Benign prostatic hyperplasia with lower urinary tract symptoms (principal); R35.1 Nocturia | CPT/HCPCS: 51798; 81003; 99212 ==

== ENCOUNTER 2023-11-10 13:43 | Outpatient (AMB) | payer MEDICARE, SELFPAY ==
--- NOTE | 2023-11-10 14:12 | MHC.OFFVIS ---
Intake Intake Visit Reasons: Frequency/Urgency/PVR Intake Note: Patient is present for Follow Up BPH Urology Med: none Blood Thinner: None PVR: 62ml's Steward/Stewardess Third Required: Yes Accompanied by: Self / Same As Patient Allergies No Known Allergies Allergy (Verified 11/10/23 14:52) Medication List - Last Reconc[facility] 11[facility]10[facility]23 [facility] mirabegron ER (Myrbetriq) 25 mg PO DAILY 30 days HPI HPI Comments History of Present Illness Details Ramsey is a very pleasant [place] male patient of Dr. Ordonez. He has a PMH of hypercholesteromia, BPH, GERD, and hypertension. He presents to the office today for a follow up of his lower urinary tract symptoms. Of note, patient s/p green light laser with Dr. Espana 06/19. When asked he reports feeling his urinary symptoms are worse than he has been previously experiencing. He reports nocutira, urinary urgency, and urinary frequency. He denies incontinence, hematuria, dysuria, foul smelling urine, changes to urinary stream, flank pain, fever, and or chills. In office urinalysis results reviewed with the patient. PVR 62ml's. He discusses not being on any urological medications at this time. He also reports that he is not taking his regular medications as he does not feel this is necessary at this time. Discussed at length potential causes for lower urinary tract symptoms patient is experiencing. Discussed and stressed the importance of drinking plenty of water daily. 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 He otherwise offers no other issues or concerns at this time. [facility] Medical History High cholesterol BPH (benign prostatic hyperplasia) GERD (gastroesophageal reflux disease) HTN (hypertension) Surgical History Hx of exploratory laparotomy History of laryngoscopy H/O colonoscopy Social History Are you a primary day care teacher to a significant other at home: Yes Do you presently have visiting nurse or other home services: No Patient Tobacco Use Status: Never used Tobacco Review of Systems Const Reports as per HPI Eyes Reports no additional complaints ENT Reports no additional complaints Card Reports as per HPI Resp Reports no additional complaints GI Reports as per HPI Reports as per HPI Musc Reports no additional complaints Neuro Reports no additional complaints Psych Reports no additional complaints Endo Reports no additional complaints Fortino/Lymph Reports no additional complaints Aller/Immun Reports no additional complaints Physical Exam Const General: cooperative, healthy appearing, comfortable, no acute distress, well developed, alert and awake Orientation/consciousness: patient oriented x3 Limitations: no limitations HEENT Head: Yes normal to inspection, Yes normocephalic and Yes atraumatic Ears: hearing grossly normal bilaterally Eyes General: appearance normal, both eyes and all related structures Neck Neck: Yes normal visual inspection and Yes trachea midline Chest Chest palpation & inspection: normal inspection of the chest Resp Effort & Inspection: normal respiratory effort and able to speak in complete sentences Cardio Rate: regular rate GI Inspection: Yes normal to inspection General: Yes no CVA tenderness Back/Spine/Pelvis Back: no CVA tenderness Skin General skin exam: no rashes or lesions noted Neuro General: patient oriented x3 Extrem General: Yes normal to inspection Psych Appearance: grossly normal and well kempt Mental Status: mental status grossly normal Speech and movement: Normal speech and movement present and Clear speech present Affect: normal affect Attitude: cooperative Thought process: Normal thought process present Thought content: Normal thought content present Insight: Fair insight present (Psych) Judgement: Fair judgement present (Psych) Office Procedures Post Void Residual Post Residual Void Post Void Residual (PVR): 62 [id number] Void Residual by ultrasound Results AMB Urinalysis, Automated UA Leukoctes 0 Garrett/uL Last Edit by [email or web address] on 11/10/23 14:47 UA Nitrite Negative Last Edit by [email or web address] on 11/10/23 14:47 UA Urobilinogen 0.2 mg/dL Last Edit by [email or web address] on 11/10/23 14:47 UA Protein 15 mg/dL Last Edit by [email or web address] on 11/10/23 14:47 UA pH 6.0 Last Edit by [email or web address] on 11/10/23 14:47 UA Blood 10 Moo/uL Last Edit by [email or web address] on 11/10/23 14:47 UA Specific [place] 1.015 Last Edit by [email or web address] on 11/10/23 14:47 UA Ketone Negative Last Edit by Enzo Bradhsaw on 11/10/23 14:47 UA Bilirubin 0 mg/dL Last Edit by Enzo Bradshaw on 11/10/23 14:47 UA Glucose 0 mg/dL Last Edit by Enzo Bradshaw on 11/10/23 14:47 Results Reviewed Results Reviewed: Laboratory Last Values Urine pH (Auto) 6.0 11/10/23 14:32 Specific [place] (Auto) 1.015 11/10/23 14:32 Urine Protein (Auto) 15 mg/dL 11/10/23 14:32 Glucose (UA)(Auto) 0 mg/dL 11/10/23 14:32 Urine Ketones (Auto) Negative 11/10/23 14:32 Urine Blood (Auto) 10 Moo/uL 11/10/23 14:32 Urine Nitrite (Auto) Negative 11/10/23 14:32 Urine Bilirubin (Auto) 0 mg/dL 11/10/23 14:32 Urine Urobilinogen (Auto) 0.2 mg/dL 11/10/23 14:32 Leukocyte Esterase (Auto) 0 Garrett/uL 11/10/23 14:32 Assessment & Plan Assessment & Plan (1) Urinary urgency: Code(s): R39.15 - Urgency of urination (2) Microscopic hematuria: Code(s): R31.29 - Other microscopic hematuria Plan In office urinalysis results reviewed with the patient today; as noted above. PVR 62 mL. Discussed at length potential causes for lower urinary tract symptoms he is experiencing. Start Myrbetriq as discussed and prescribed. Discussed, educated, and stressed the importance of drinking plenty of water daily. Will obtain PSA. Follow-up in 6 weeks with PVR; or sooner with any issues, concerns, and or questions. 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
== END 2023-11-10 14:44 | disposition home or self-care (01) ==
PROVIDERS: PCP Internal Medicine; Visit Provider Nurse Practitioner Family
DX: R39.15 Urgency of urination (principal); R31.29 Other microscopic hematuria
CPT/HCPCS: 99214

== ENCOUNTER → 2023-11-10 13:43 | Outpatient (BNVA) | payer MEDICARE, SELFPAY | PROVIDERS: PCP Internal Medicine; Visit Provider Nurse Practitioner Family | DX: R39.15 Urgency of urination (principal); R31.29 Other microscopic hematuria | CPT/HCPCS: 51798; 81003; 99212 ==

== ENCOUNTER 2023-12-22 06:47 | Outpatient (REF) | payer MEDICARE, SELFPAY ==
[2023-12-22 08:43] LABS: Prostate Specific Antigen 3.74 ng/mL (<0.05-4.0)
== END 2023-12-22 06:48 | disposition home or self-care (01) ==
LOC: HO.LAB 06:47
PROVIDERS: PCP Internal Medicine; Visit Provider Nurse Practitioner Family
DX: N40.0 Benign prostatic hyperplasia without lower urinary tract symptoms (principal); R39.15 Urgency of urination; R39.11 Hesitancy of micturition; R35.1 Nocturia; R80.9 Proteinuria, unspecified; R33.9 Retention of urine, unspecified; Z12.5 Encounter for screening for malignant neoplasm of prostate; Z79.899 Other long term (current) drug therapy
CPT/HCPCS: 36415; 51798; 81003; 84153; 99212

== ENCOUNTER 2023-12-22 13:11 | Outpatient (AMB) | payer MEDICARE, SELFPAY ==
--- NOTE | 2023-12-22 13:29 | A.OFFVIS_ITS ---
Intake Intake Visit Reasons: 6w follow up Intake Note: Patient presents today for a follow-up on: PVR Meds- Myrbetriq ( Patient finished taking it) Allergies to Antibiotic- None Blood Thinner- None Post Void Residual:84 Patient Symptoms: Patient stated he has pain when he urinates, He also stated he was doing well while he was taking Mybetriq. 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 Ordonez. He has a PMH of hypercholesteromia, BPH, GERD, and hypertension. He presents to the office today for a follow up of his lower urinary tract symptoms. Of note, patient s/p green light laser with Dr. Espana 06/19. Patient was last seen approximately 6 weeks ago for reports of nocturia, urinary urgency, and urinary frequency at which time he was started on Myrbetriq 25 mg daily. In discussion with the patient today he reports for the first 3-4 weeks he did not note any improvement in his urinary symptoms however did have somewhat relief the last 2 weeks of medication and then felt symptoms returned. He reports noting intermittent right-sided flank pain and lower abdominal b ladder pressure/discomfort. Discussed obtaining retroperitoneal ultrasound for further assessment evaluation. He otherwise denies incontinence, hematuria, dysuria, foul smelling urine, changes to urinary stream, flank pain, fever, and or chills. In office urinalysis results reviewed with the patient. PVR 84ml's. 2+ proteinuria noted on urinalysis today discussed referral to Nephrology for further assessment evaluation. He also reports that he is not taking his regular medications as he does not feel this is necessary at this time. Discussed at length potential causes for lower urinary tract symptoms patient is experiencing. Discussed and stressed the importance of drinking plenty of water daily. 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 He otherwise offers no other issues or concerns at this time. 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: Yes Do you presently have visiting nurse or other home services: No Patient Tobacco Use Status: Never used Tobacco Review of Systems Const Reports as per HPI Eyes Reports no additional complaints ENT Reports no additional complaints Card Reports as per HPI Resp Reports no additional complaints GI Reports as per HPI Reports as per HPI Musc Reports no additional complaints Neuro Reports no additional complaints Psych Reports no additional complaints Endo Reports no additional complaints Fortino/Lymph Reports no additional complaints Aller/Immun Reports no additional complaints Physical Exam Const General: cooperative, healthy appearing, comfortable, no acute distress, well developed, alert and awake Orientation/consciousness: patient oriented x3 Limitations: no limitations HEENT Head: Yes normal to inspection, Yes normocephalic and Yes atraumatic Ears: hearing grossly normal bilaterally Eyes General: appearance normal, both eyes and all related structures Neck Neck: Yes normal visual inspection and Yes trachea midline Chest Chest palpation & inspection: normal inspection of the chest Resp Effort & Inspection: normal respiratory effort and able to speak in complete sentences Cardio Rate: regular rate GI Inspection: Yes normal to inspection General: Yes no CVA tenderness Back/Spine/Pelvis Back: no CVA tenderness Skin General skin exam: no rashes or lesions noted Neuro General: patient oriented x3 Extrem General: Yes normal to inspection Psych Appearance: grossly normal and well kempt Mental Status: mental status grossly normal Speech and movement: Normal speech and movement present and Clear speech present Affect: normal affect Attitude: cooperative Thought process: Normal thought process present Thought content: Normal thought content present Insight: Fair insight present (Psych) Judgement: Fair judgement present (Psych) Office Procedures Post Void Residual Post Residual Void Post Void Residual (PVR): 84 [id number] Void Residual by ultrasound Results AMB Urinalysis, Automated UA Leukoctes 15 Garrett/uL Last Edit by Le Shirleynasima Shirley [facility] on 12/22/23 13:41 UA Nitrite Negative [facility], [facility] on 12/22/23 13: 41 UA Urobilinogen 0.2 mg/dL Last Edit [facility], [facility] on 4 13:41 UA Protein 100 mg/dL Last Edit by [facility] on 12/22/23 13: 41 UA pH 6.0 Last Edit by [facility], [facility] on 12/22/23 13:41 UA Blood 0 Moo/uL Last Edit [facility], [facility] on 12/22/23 13:41 UA Specific [place] 1.025 Last Edit [facility] on 13:41 UA Ketone Negative Last Edit [facility], [facility] on 12/22/23 13:4 1 UA Bilirubin 0 mg/dL Last Edit by [facility] on 12/22/23 13: 41 UA Glucose 0 mg/dL Last Edit [facility], [facility] on 12/22/23 13:41 Results Reviewed Results Reviewed: Laboratory Last Values Urine pH (Auto) 6.0 12/22/23 13:40 Specific [place] (Auto) 1.025 12/22/23 13:40 Urine Protein (Auto) 100 mg/dL 12/22/23 13:40 Glucose (UA)(Auto) 0 mg/dL 12/22/23 13:40 Urine Ketones (Auto) Negative 12/22/23 13:40 Urine Blood (Auto) 0 Moo/uL 12/22/23 13:40 Urine Nitrite (Auto) Negative 12/22/23 13:40 Urine Bilirubin (Auto) 0 mg/dL 12/22/23 13:40 Urine Urobilinogen (Auto) 0.2 mg/dL 12/22/23 13:40 Leukocyte Esterase (Auto) 15 Garrett/uL 12/22/23 13:40 Assessment & Plan Assessment & Plan (1) Urinary urgency: Code(s): R39.15 - Urgency of urination (2) Urinary hesitancy: Code(s): R39.11 - Hesitancy of micturition (3) Nocturia more than twice per night: Code(s): R35.1 - Nocturia (4) Proteinuria: Code(s): R80.9 - Proteinuria, unspecified Plan In office urinalysis results reviewed with the patient today; as noted above; will send referral to Nephrology for further assessment evaluation of proteinuria. Recent PSA results reviewed with the patient today; as noted above. Discussed at length importance of taking medications as prescribed. Will obtain retroperitoneal ultrasound for further assessment evaluation. Stop Myrbetriq. Start Toviaz 4 mg; discussed possible increase if benefitting from 4 mg Discussed bladder triggers/irritants. Discussed attempting to sit when voiding to assist with urinary symptoms. Follow-up in 6-8 weeks with imaging to be completed prior and PVR at next office visit; or sooner with any issues, concerns, and or questions. 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 All questions were answered. Physical exam, labs, and imaging were discussed and reviewed in detail. As well as risks, benefits, and discussion of treatment choices. No major barriers to understanding were identified. The patient expressed understanding and agreement with the above treatment plan. The patient was made aware they should contact our office by phone for worsening of their current condition, the appearance of new symptoms, or with any questions or concerns. Compliance is encouraged with any medications and follow up testing that is ordered. It is a privilege to be allowed the opportunity to participate in? your urological care.? Again, if you have any questions or concerns If you have any questions or concerns please do not hesitate to contact me. The office is [phone]. This note is constructed using voice recognition software. While every effort has been made to ensure accuracy intake coordinator errors may have been included. Yours sincerely, BRIGID Bartlett Coding Level of Care Code Est Pt Level 4 (78234) Diagnoses Urinary urgency R39.15 Urinary hesitancy R39.11 Nocturia more than twice per night R35.1 Proteinuria R80.9 CPT Codes Post Residual Void - PVR CPT Code: 95454-Swcd Void Residual by ultrasound ([id number])
== END 2023-12-22 13:58 | disposition home or self-care (01) ==
PROVIDERS: PCP Internal Medicine; Visit Provider Nurse Practitioner Family
DX: R39.15 Urgency of urination (principal); R39.11 Hesitancy of micturition; R35.1 Nocturia; R80.9 Proteinuria, unspecified; R33.9 Retention of urine, unspecified; N40.0 Benign prostatic hyperplasia without lower urinary tract symptoms
CPT/HCPCS: 99214

== ENCOUNTER 2023-12-28 08:05 | Outpatient (REF) | payer MEDICARE, SELFPAY ==
[2023-12-28 08:39] LABS: MANUAL DIFF FLAG NO
[2023-12-28 08:59] LABS: Basophils Absolute Auto 0.1 X10*3/uL (0.0-0.2); Basophils Percent Auto 0.6 % (0-2); Eosinophils Absolute Auto 0.3 X10*3/uL (0.0-0.4); Hematocrit 40.3 % (42.0-52.0); Hemoglobin 13.4 g/dl (14.0-18.0); Imm Gran Abs Auto 0.04 X10*3/uL (0.00-0.03); Imm Gran Pct Auto 0.5 % (0.0-0.4); Lymphocytes Absolute Auto 2.5 X10*3/uL (1.2-4.9); Lymphocytes Percent Auto 29.6 % (20-40); Mean Corpuscular HGB Conc 33.3 g/dl (31.0-36.0); Mean Corpuscular Hemoglobin 29.6 pg (27.0-33.0); Mean Corpuscular Volume 89.2 fL (80.0-98.0); Mean Platelet Volume 12.1 fL (9.4-12.4); Monocytes Absolute Auto 0.5 X10*3/uL (0.1-1.2); Monocytes Percent Auto 5.8 % (2-11); Neutrophils Absolute Auto 5.2 x10*3/uL (2.0-8.3); Neutrophils Percent Auto 60.5 % (45-73); Platelet Count 198 X10*3/uL (160-400); Red Blood Count 4.52 X10*6/uL (4.60-5.80); Red Cell Distribution Width 12.7 % (11.0-16.0); White Blood Count 8.6 X10*3/uL (4.8-10.8)
[2023-12-28 09:55] LABS: Alanine Aminotransferase 34 U/L (0-40); Albumin Level 4.1 g/dL (3.5-5.0); Alkaline Phosphatase 91 U/L (39-117); Anion Gap 13 (12-20); Aspartate Amino Transferase 26 U/L (5-37); Bilirubin Total 0.5 mg/dL (0.0-1.0); Blood Urea Nitrogen 18 mg/dL (9-16); Calcium 9.3 mg/dL (8.4-10.2); Carbon Dioxide 27 mmol/L (22-29); Chloride 105 mmol/L (96-108); Cholesterol 179 mg/dL (<200); Estimated Glomerular Filt Rate > 60; Glucose Random 95 mg/dL (60-115); HDL Cholesterol 53 mg/dL (>40); LDL Cholesterol Calculated 99 mg/dL (<100); Potassium 4.5 mmol/L (3.3-5.1); Sodium 140 mmol/L (135-145); Total Protein 7.3 g/dL (6.5-8.0); Triglycerides 137 mg/dL (<150)
== END 2023-12-28 08:06 | disposition home or self-care (01) ==
LOC: HO.LAB 08:05
PROVIDERS: PCP Internal Medicine; Visit Provider Internal Medicine
DX: E78.00 Pure hypercholesterolemia, unspecified (principal); I10 Essential (primary) hypertension
CPT/HCPCS: 36415; 80053; 80061; 85025

== ENCOUNTER 2024-01-05 11:30 | Outpatient (AMB) | payer MEDICARE, SELFPAY ==
--- NOTE | 2024-01-05 11:32 | HO.NEPHOV_ITS ---
HPI HPI Comments History of Present Illness Details 78 yr old man with HTN, referred by Ofe muñoz for proteinuria c/o increased frequency and right flank discomfort. 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 Comfortable. Neck is supple. Mucosa moist. Lungs bilateral scattered rhonchi. Heart S1-S2 heard no gallop. Abdomen soft. Extremities no edema. No involuntary movements. No myoclonus. Assessment & Plan Assessment & Plan (1) Proteinuria: Code(s): R80.9 - Proteinuria, unspecified Plan Elderly man with dip stick positive proteinuria and essentially normal renal function for his age UA is otherswise unremarkable. Will check urine protein creatinine ratio IF elevated would proceed with further work up In the mean time, maintain BP < 130/80 and continue with Losartan Needs to stay on low salt diet Await Ultrasonogram Orders: Orders Total Protein Urine Random Today R80.9 - Proteinuria, unspecified UA and rflx microscopic Today R80.9 - Proteinuria, unspecified Creatinine Urine Today R80.9 - Proteinuria, unspecified Coding Level of Care Code New Pt Level 4 (93030) Diagnoses Proteinuria R80.9 Results Reviewed Nephrology Results: Hgb 13.4 g/dl (14.0-18.0) L 12/28/23 WBC 8.6 X10*3/uL (4.8-10.8) 12/28/23 Plt Count 198 X10*3/uL (160-400) 12/28/23 Sodium 140 mmol/L (135-145) 12/28/23 Potassium 4.5 mmol/L (3.3-5.1) 12/28/23 Chloride 105 mmol/L (96-108) 12/28/23 Carbon Dioxide 27 mmol/L (22-29) 12/28/23 BUN 18 mg/dL (9-16) H 12/28/23 Creatinine 1.04 mg/dL (0.5-1.4) 12/28/23 Calcium 9.3 mg/dL (8.4-10.2) 12/28/23 Urine Protein 100 (2+) mg/dL (Neg-Trace) H 07/20/23
[2024-01-05 11:34] VITALS: BP 126/78; PULSE 75; O2SAT 98
== END 2024-01-05 12:09 | disposition home or self-care (01) ==
PROVIDERS: PCP Internal Medicine; Visit Provider Internal Medicine Hypertension Specialist
DX: R80.9 Proteinuria, unspecified (principal)
CPT/HCPCS: 99204

== ENCOUNTER 2024-01-05 11:30 | Outpatient (REF) | payer MEDICARE, SELFPAY ==
[2024-01-05 13:26] LABS: Appearance Urine Hazy; Color Urine Orange; Leukocyte Esterase Urine Negative (Negative); PH 5.5 (5.0-9.0); Specific Gravity - Urine 1.015 (1.005-1.025); UMIC TRIGGER UA YES; Urine Blood Trace (Negative); Urine Ketones Negative (Negative); Urine Protein 100 (2+) mg/dL (Neg-Trace)
[2024-01-05 13:31] LABS: Bacteria Urine None Seen (None Seen); Hyaline Casts Urine 0-2 /LPF (0-2); RBC Urine 0-2 /HPF (0-2); Squamous Epithelial Cell Urine 0-2 /HPF (0-2); WBC Urine 0-5 /HPF (0-5)
[2024-01-05 13:51] LABS: Creatinine Urine 91.12 mg/dL; Total Protein Urine Random 34 mg/dL (<12)
== END 2024-01-05 11:31 | disposition home or self-care (01) ==
LOC: HO.LAB 11:30
PROVIDERS: PCP Internal Medicine; Visit Provider Internal Medicine Hypertension Specialist
DX: R80.9 Proteinuria, unspecified (principal); I10 Essential (primary) hypertension
CPT/HCPCS: 81001; 82570; 84156; 99202

== ENCOUNTER 2024-01-17 09:51 | Outpatient (REF) | payer MEDICARE, SELFPAY ==
--- NOTE | ~2024-01-17 | US_ITS ---
EXAMINATION: US RETROPERITONEAL COMPLETE (RENAL) CLINICAL INFORMATION: Urgency of urination. COMPARISON: Renal ultrasound of 09/03/2010. TECHNIQUE: Real-time imaging of the kidneys and bladder. Limited visualization due to bowel gas. FINDINGS: RIGHT KIDNEY: 9.7 x 5.5 x 4.7 cm (SAG x AP x TRV). No hydronephrosis. No renal calculi. Renal cortical thickness is normal. Limited visualization. Midpole 1.1 cm exophytic cyst with benign features. There is no indication for follow-up imaging. LEFT KIDNEY: 10.3 x 5.2 x 4.6 cm (SAG x AP x TRV). No hydronephrosis. No renal calculi. Renal cortical thickness is normal. Limited visualization. BLADDER: Well distended. Bilateral ureteral jets are demonstrated. Prevoid bladder volume is 344 mL. Postvoid bladder volume is 205 mL. ADDITIONAL FINDINGS: The patient stated to the truck railroad and bus motor mechanic that he had his prostate removed in June 2023; however, there is a 6.0 x 4.7 x 5.6 cm, volume 83.2 mm lobulated, hypoechoic mass in the expected location of the prostate with the appearance characteristic of an enlarged prostate. Correlation with clinical exam and surgical history recommended. US/US retroperitoneal comp IMPRESSION: 1. The patient stated to the truck railroad and bus motor mechanic that he had his prostate removed in June 2023, however, there is a 6.0 x 4.7 x 5.6 cm, volume 83.2 mm lobulated, hypoechoic mass in the expected location of the prostate with the appearance characteristic of an enlarged prostate. Correlation with clinical exam and surgical history recommended. 2. Postvoid bladder volume is 205 mL. 3. No hydronephrosis. No renal calculi. Limited visualization.
== END 2024-01-17 09:52 | disposition home or self-care (01) ==
LOC: HO.US 09:51
PROVIDERS: PCP Internal Medicine; Visit Provider Nurse Practitioner Family
DX: R39.15 Urgency of urination (principal); R39.11 Hesitancy of micturition; R35.1 Nocturia
CPT/HCPCS: 76770

== ENCOUNTER 2024-02-01 09:31 | Outpatient (AMB) | payer MEDICARE, SELFPAY ==
--- NOTE | 2024-02-01 10:08 | MHC.OFFVIS ---
Intake Intake Visit Reasons: 6w/US(set) Intake Note: Patient presents today for a follow up microscopic hematuria, urgency, nocturia, and ultrasound results Imagin01/17/24 Urology Medications: Toviaz (patient not currently taking) Allergies to Antibiotic: None Blood Thinner:None Post Void Residual: 85ml's [address] Service Required: No Accompanied by: Self / Same As Patient Allergies No Known Allergies Allergy (Verified 02/01/24 10:53) Medication List - Last Reconciled 02/01/24 by NANCI Bartlett-PARMINDER atorvastatin 20 mg PO DAILY losartan-hydrochlorothiazide 100-25 mg 1 tab PO DAILY meloxicam 7.5 mg PO DAILY tolterodine ER 4 mg PO DAILY 30 days HPI HPI Comments History of Present Illness Details Ramsey is a very pleasant 78 year old Azeri male patient of Dr. Ordonez. He has a PMH of hypercholesteromia, BPH, GERD, and hypertension. He presents to the office today for a follow up of his lower urinary tract symptoms. Of note, patient s/p green light laser with Dr. Espana 06/19. Patient was last seen approximately 6 weeks ago for reports of nocturia, urinary urgency, and urinary frequency at which time Myrbetriq 25 mg was discontinued as patient did not report any improvement in lower urinary tract symptoms and patient was started on 4 mg of tolterodine. A retroperitoneal ultrasound was also ordered for further assessment evaluation. These results reviewed with the patient today. Bilateral kidneys with no hydronephrosis or renal calculi. Right kidney with mid pole 1.1 cm cyst with benign features. No follow up imaging recommended per radiology report. The bladder is well distended.Bilateral ureteral jets are demonstrated. Pre void bladder volume is approximately 345 mL. Postvoid bladder volume is approximately 200 mL. Prevoid bladder volume is 344 mL. Postvoid bladder volume is 205 mL. Prostate volume approximately 83 mL. In discussion with the patient today he reports significant improvement in lower urinary tract symptoms on tolterodine 4 mg daily. He reports he has weaned himself off this medication and remains on Flomax and feels symptoms have subsided. He also discusses his frustration regarding expenses of overactive bladder medication. In office urinalysis results reviewed with the patient today. PVR 85 mL. He currently denies any bothersome urinary issues or concerns. He denies urinary urgency, urinary frequency, incontinence, nocturia, hematuria, dysuria, foul smelling urine, changes to urinary stream, flank pain, fever, and or chills. He is happy with his current voiding parameters on Flomax 0.4 mg daily. 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 home: Yes Do you presently have visiting nurse or other home services: No Patient Tobacco Use Status: Never used Tobacco Review of Systems Const Reports as per HPI Eyes Reports no additional complaints ENT Reports no additional complaints Card Reports as per HPI Resp Reports no additional complaints GI Reports as per HPI Reports as per HPI Musc Reports no additional complaints Neuro Reports no additional complaints Psych Reports no additional complaints Endo Reports no additional complaints Fortino/Lymph Reports no additional complaints Aller/Immun Reports no additional complaints Physical Exam Const General: cooperative, healthy appearing, comfortable, no acute distress, well developed, alert and awake Orientation/consciousness: patient oriented x3 Limitations: no limitations HEENT Head: Yes normal to inspection, Yes normocephalic and Yes atraumatic Ears: hearing grossly normal bilaterally Eyes General: appearance normal, both eyes and all related structures Neck Neck: Yes normal visual inspection and Yes trachea midline Chest Chest palpation & inspection: normal inspection of the chest Resp Effort & Inspection: normal respiratory effort and able to speak in complete sentences Cardio Rate: regular rate GI Inspection: Yes normal to inspection General: Yes no CVA tenderness Back/Spine/Pelvis Back: no CVA tenderness Skin General skin exam: no rashes or lesions noted Neuro General: patient oriented x3 Extrem General: Yes normal to inspection Psych Appearance: grossly normal and well kempt Mental Status: mental status grossly normal Speech and movement: Normal speech and movement present and Clear speech present Affect: normal affect Attitude: cooperative Thought process: Normal thought process present Thought content: Normal thought content present Insight: Fair insight present (Psych) Judgement: Fair judgement present (Psych) Office Procedures Post Void Residual Post Residual Void Post Void Residual (PVR): 85 [id number] Void Residual by ultrasound Results AMB Urinalysis, Automated UA Leukoctes 0 Garrett/uL Last Edit by [employer] on 02/01/24 10:34 UA Nitrite Negative Last Edit by [email or web address] on 02/01/24 10:34 UA Urobilinogen 0.2 mg/dL Last Edit by [email or web address] on 02/01/24 10:34 UA Protein 15 mg/dL Last Edit by [email or web address] on 02/01/24 10:34 UA pH 6.0 Last Edit by [email or web address] on 02/01/24 10:34 UA Blood 0 Moo/uL Last Edit by [email or web address] on 02/01/24 10:34 UA Specific [place] 1.010 Last Edit by [email or web address] on 02/01/24 10:34 UA Ketone Negative Last Edit by [email or web address] on 02/01/24 10:34 UA Bilirubin 0 mg/dL Last Edit by [email or web address] on 02/01/24 10:34 UA Glucose 0 mg/dL Last Edit by [email or web address] on 02/01/24 10:34 Results Reviewed Results Reviewed: Laboratory Last Values Urine pH (Auto) 6.0 02/01/24 10:32 Specific [place] (Auto) 1.010 02/01/24 10:32 Urine Protein (Auto) 15 mg/dL 02/01/24 10:32 Glucose (UA)(Auto) 0 mg/dL 02/01/24 10:32 Urine Ketones (Auto) Negative 02/01/24 10:32 Urine Blood (Auto) 0 Moo/uL 02/01/24 10:32 Urine Nitrite (Auto) Negative 02/01/24 10:32 Urine Bilirubin (Auto) 0 mg/dL 02/01/24 10:32 Urine Urobilinogen (Auto) 0.2 mg/dL 02/01/24 10:32 Leukocyte Esterase (Auto) 0 Garrett/uL 02/01/24 10:32 Date of Service: 01/17/24 EXAMINATION: US RETROPERITONEAL COMPLETE (RENAL) of the kidneys and bladder. Limited visualization due to bowel gas. FINDINGS: RIGHT KIDNEY: 9.7 x 5.5 x 4.7 cm (SAG x AP x TRV). No hydronephrosis. No renal calculi. Renal cortical thickness is normal. Limited visualization. Midpole 1.1 cm exophytic cyst with benign features. There is no indication for follow-up imaging. LEFT KIDNEY: 10.3 x 5.2 x 4.6 cm (SAG x AP x TRV). No hydronephrosis. No renal calculi. Renal cortical thickness is normal. Limited visualization. BLADDER: Well distended. Bilateral ureteral jets are demonstrated. Prevoid bladder volume is 344 mL. Postvoid bladder volume is 205 mL. ADDITIONAL FINDINGS: The patient stated to the tiger machine operator that he had his prostate removed in June 2023; however, there is a 6.0 x 4.7 x 5.6 cm, volume 83.2 mm lobulated, hypoechoic mass in the expected location of the prostate with the appearance characteristic of an enlarged prostate. Correlation with clinical exam and surgical history recommended. IMPRESSION: 1. The patient stated to the tiger machine operator that he had his prostate removed in June 2023, however, there is a 6.0 x 4.7 x 5.6 cm, volume 83.2 mm lobulated, hypoechoic mass in the expected location of the prostate with the appearance characteristic of an enlarged prostate. Correlation with clinical exam and surgical history recommended. 2. Postvoid bladder volume is 205 mL. 3. No hydronephrosis. No renal calculi. Limited visualization. Assessment & Plan Assessment & Plan (1) Urinary urgency: Code(s): R39.15 - Urgency of urination (2) Urinary hesitancy: Code(s): R39.11 - Hesitancy of micturition (3) Nocturia more than twice per night: Code(s): R35.1 - Nocturia (4) Proteinuria: Code(s): R80.9 - Proteinuria, unspecified Plan In office urinalysis results reviewed with the patient today; as noted above Recent retroperitoneal ultrasound results reviewed with the patient today. PVR 85 mLs Discussed at length importance of taking medications as prescribed. Discussed at length potential causes of lower urinary tract symptoms patient had been experiencing such as microscopic hematuria and affects of as well as causes of microscopic hematuria. Continue Flomax as prescribed. Discussed bladder triggers/irritants. Patient currently denies any bothersome urinary issues or concerns. He is happy with his current voiding parameters. Will obtain PSA in 6 months. Follow-up in 6 months with PVR and lab to be completed prior; or sooner with any issues, concerns, and or questions. Orders: Orders AMB Urinalysis Automated Today Z13.9 - Encounter for screening, unspecified AMB Post Void Residual by ultrasound Today R39.15 - Urgency of urination Patient Instructions: The patient had an opportunity to ask questions regarding the treatment plan. All questions were answered. Physical exam, labs, and imaging were discussed and reviewed in detail. As well as risks, benefits, and discussion of treatment choices. No major barriers to understanding were identified. The patient expressed understanding and agreement with the above treatment plan. The patient was made aware they should contact our office by phone for worsening of their current condition, the appearance of new symptoms, or with any questions or concerns. Compliance is encouraged with any medications and follow up testing that is ordered. It is a privilege to be allowed the opportunity to participate in? your urological care.? Again, if you have any questions or concerns If you have any questions or concerns please do not hesitate to contact me. The office is [phone]. This note is constructed using voice recognition software. While every effort has been made to ensure accuracy labor law professor errors may have been included. Yours sincerely, BRIGID Bartlett Coding Level of Care Code Est Pt Level 3 (43920) Diagnoses Urinary urgency R39.15 Urinary hesitancy R39.11 Nocturia more than twice per night R35.1 Proteinuria R80.9 CPT Codes Post Residual Void - PVR CPT Code: 96327-Ooqt Void Residual by ultrasound ([id number])
== END 2024-02-01 10:52 | disposition home or self-care (01) ==
PROVIDERS: PCP Internal Medicine; Visit Provider Nurse Practitioner Family
DX: R39.15 Urgency of urination (principal); R39.11 Hesitancy of micturition; R35.1 Nocturia; R80.9 Proteinuria, unspecified; Z13.9 Encounter for screening, unspecified
CPT/HCPCS: 99213

== ENCOUNTER → 2024-02-01 09:31 | Outpatient (BNVA) | payer MEDICARE, SELFPAY | PROVIDERS: PCP Internal Medicine; Visit Provider Nurse Practitioner Family | DX: R39.15 Urgency of urination (principal); R39.11 Hesitancy of micturition; R35.1 Nocturia; R80.9 Proteinuria, unspecified | CPT/HCPCS: 51798; 81003; 99212 ==

== ENCOUNTER 2024-04-09 14:13 | Outpatient (REF) | payer MEDICARE, SELFPAY ==
--- NOTE | ~2024-04-09 | XR_ITS ---
EXAMINATION: XR HIP, LEFT CLINICAL INFORMATION: Osteoarthritis in the left hip. COMPARISON: None available. TECHNIQUE: Two views of the left hip. FINDINGS: Mild narrowing of the weightbearing joint space. Subchondral sclerosis and mild osteophytes around the acetabulum. No discrete fracture. XR/XR hip LT min 2V IMPRESSION: Mild osteoarthritis of the left hip.
== END 2024-04-09 14:14 | disposition home or self-care (01) ==
LOC: HO.XRAY 14:13
PROVIDERS: PCP Internal Medicine; Visit Provider Internal Medicine
DX: M16.12 Unilateral primary osteoarthritis, left hip (principal)
CPT/HCPCS: 73502

== ENCOUNTER 2024-05-02 10:00 | Outpatient (RCR) | payer MEDICARE, SELFPAY ==
--- NOTE | 2024-04-16 11:49 | MHC.PT.EP ---
[facility] [place] Office [place] Office [place] Office [address] Em Martínez [address] [phone] F: [phone] F: [phone] F: [phone] F: [phone] Physical Therapy Plan of Care Date of Evaluation: 04/16/24 Date of Surgery: Diagnosis: lumbar radiculopathy (MD Dx) LEFT hip sciatica and piriformis syndrome (PT Dx) (RS) Assessment: Patient is a pleasant 79 y.o male. who is referred to PT by Dr. Lotus Camp MD with Dx of lumbar radiculopathy. PT diagnosis also includes LEFT hip sciatica and piriformis syndrome. Patient impairments include pain, poor posture, limited ROM, weakness, antalgic gait.Patient current functional limitations are prolonged sitting, lying down to sleep, difficulty putting on shoes/socks, driving. Patient will benefit from skilled PT to address aforementioned impairments and functional limitations to meet established goals. Frequency and Duration: The patient will be seen 1-2x/week for 4 weeks Short Term Goals: 2 weeks Patient demonstrates consistency and independence with HEP to self manage symptoms. Senior Care Goals: 4 weeks Patient presents with increased L hip glute med strength 4+/5 to be able to driving without LE radicualr sxs. Patient presents with increased L hip ER 30 degees to be able to put on shoes/socks. Treatment Plan: Modalities to reduce pain, spasms and effusion. Manual therapy to restore motion and function. Therapeutic exercise to improve strength and flexibility. Neuromuscular re-education for posture and balance. Therapeutic activities to return to functional activities of daily living. Electronically signed by: Harjit Haque, PT, DPT Please sign and return to therapist. Thank you for your referral.
--- NOTE | 2024-05-02 13:19 | MHC.PT.DC ---
[facility] [place] Office [place] Office [place] Office [address] Em Martínez [address] [phone] F: [phone] F: [phone] F: [phone] F: [phone] Physical Therapy Discharge Report Diagnosis: lumbar radiculopathy (MD Dx) LEFT hip sciatica and piriformis syndrome (PT Dx) (RS) Date of Surgery: Date of Evaluation: 04/16/24 Date of Discharge: 05/02/24 Treatments to Date: 3 Cancellations to Date: No Shows to Date: Discharge Status: Improved Function Patient Elected to Stop Discharge Summary: Ramsey reports he notices significant improvement since starting PT. He is able to do everything he needs to at home and his pain is reduced. He feels like he can manage at home and come back if he needs to. Electronically signed by: Harjit Haque, PT, DPT Please sign and return to therapist. Thank you for your referral.
== END 2024-05-02 13:19 | disposition home or self-care (01) ==
LOC: HO.PT 10:00
PROVIDERS: PCP Internal Medicine; Visit Provider Internal Medicine
DX: M54.16 Radiculopathy, lumbar region (principal)
CPT/HCPCS: 97110; 97140; 97161; 97530

== ENCOUNTER 2024-08-03 10:13 | Outpatient (AMB) | payer MEDICARE, SELFPAY ==
--- NOTE | 2024-08-03 10:16 | A.OFFVIS_ITS ---
Intake Visit Reasons: 6m/PVR Intake Note: Patient presents today for a follow up microscopic hematuria, urgency, nocturia Urology Medications: Tolterodine Allergies to Antibiotic: None Blood Thinner:None Post Void Residual: 130ml's Microstrategy Architect Developer Required: No Accompanied by: Self / Same As Patient Allergies No Known Allergies Allergy (Verified 08/03/24 10:47) Medication List - Last Reconciled 08/03/24 by BRIGID Bartlett atorvastatin 20 mg PO DAILY losartan-hydrochlorothiazide 100-25 mg 1 tab PO DAILY meloxicam 7.5 mg PO DAILY tamsulosin 0.4 mg PO BEDTIME 30 days HPI Comments Details: Ramsey is a very pleasant 79 year old [place] male patient of Dr. Ordonez. He has a PMH of hypercholesteromia, BPH, GERD, and hypertension. He presents to the office today for a follow up of his lower urinary tract symptoms. Of note, patient s/p green light laser with Dr. Espana 06/19. In discussion with the patient today he reports since his last office visit here approximately 6 months ago he has been experiencing nocturia, urinary urgency, urinary frequency, and feelings of incomplete bladder emptying. In office urinalysis results reviewed with the patient today. PVR; 130 mL. He reports compliance with tolterodine as prescribed. Previous workup has included a retroperitoneal ultrasound 01/21 bilateral kidneys with no hydronephrosis or renal calculi. Right kidney with mid pole 1.1 cm cyst with benign features. No follow up imaging recommended per radiology report. The bladder is well distended.Bilateral ureteral jets are demonstrated. Pre void bladder volume is approximately 345 mL. Postvoid bladder volume is approximately 200 mL. Prevoid bladder volume is 344 mL. Postvoid bladder volume is 205 mL. Prostate volume approximately 83 mL. We discussed at length potential causes of lower urinary tract symptoms patient is experiencing. We discussed importance of limiting fluids prior to bed to decrease episodes of nocturia. We discussed potential causes and affects of incomplete bladder emptying. He otherwise denies incontinence, hematuria, dysuria, foul smelling urine, changes to urinary stream, flank pain, fever, and or chills. 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 home: Yes Do you presently have visiting nurse or other home services: No Patient Tobacco Use Status: Never used Tobacco Review of Systems Const Reports as per HPI Eyes Reports no additional complaints ENT Reports no additional complaints Card Reports as per HPI Resp Reports no additional complaints GI Reports as per HPI Reports as per HPI Musc Reports no additional complaints Neuro Reports no additional complaints Psych Reports no additional complaints Endo Reports no additional complaints Fortino/Lymph Reports no additional complaints Aller/Immun Reports no additional complaints Physical Exam Const General: cooperative, healthy appearing, comfortable, no acute distress, well developed, alert and awake Orientation/consciousness: patient oriented x3 Limitations: no limitations HEENT Head: Yes normal to inspection, Yes normocephalic and Yes atraumatic Ears: hearing grossly normal bilaterally Eyes General: appearance normal, both eyes and all related structures Neck Neck: Yes normal visual inspection and Yes trachea midline Chest Chest palpation & inspection: normal inspection of the chest Resp Effort & Inspection: normal respiratory effort and able to speak in complete sentences Cardio Rate: regular rate GI Inspection: Yes normal to inspection General: Yes no CVA tenderness Back/Spine/Pelvis Back: no CVA tenderness Skin General skin exam: no rashes or lesions noted Neuro General: patient oriented x3 Extrem General: Yes normal to inspection Psych Appearance: grossly normal and well kempt Mental Status: mental status grossly normal Speech and movement: Normal speech and movement present and Clear speech present Affect: normal affect Attitude: cooperative Thought process: Normal thought process present Thought content: Normal thought content present Insight: Fair insight present (Psych) Judgement: Fair judgement present (Psych) Office Procedures Post Void Residual Post Residual Void Post Void Residual (PVR): 130 [id number]-[id number] Void Residual by ultrasound Results AMB Urinalysis, Automated UA Leukoctes 0 Garrett/uL Last Edit by Enzo Bradshaw on 08/03/24 10:34 UA Nitrite Last Edit by Enzo Bradshaw on 08/03/24 10:34 UA Urobilinogen 0.2 mg/dL Last Edit by Enzo Jackmanmax on 08/03/24 10:34 UA Protein 30 mg/dL Last Edit by Enzo Jackmanmax on 08/03/24 10:34 UA pH 6.0 Last Edit by Enzo Augustinamax on 08/03/24 10:34 UA Blood 0 Moo/uL Last Edit by Enzo Augustinamax on 08/03/24 10:34 UA Specific [place] 1.010 Last Edit by Felicianosailaja Augustinamax on 08/03/24 10:34 UA Ketone Last Edit by Enzo Augustinamax on 08/03/24 10:34 UA Bilirubin 0 mg/dL Last Edit by Enzo Augustinamax on 08/03/24 10:34 UA Glucose 0 mg/dL Last Edit by Enzo Augustinamax on 08/03/24 10:34 Results Reviewed Results Reviewed: Laboratory Last Values Urine pH (Auto) 6.0 08/03/24 10:32 Specific [place] (Auto) 1.010 08/03/24 10:32 Urine Protein (Auto) 30 mg/dL 08/03/24 10:32 Glucose (UA)(Auto) 0 mg/dL 08/03/24 10:32 Urine Blood (Auto) 0 Moo/uL 08/03/24 10:32 Urine Bilirubin (Auto) 0 mg/dL 08/03/24 10:32 Urine Urobilinogen (Auto) 0.2 mg/dL 08/03/24 10:32 Leukocyte Esterase (Auto) 0 Garrett/uL 08/03/24 10:32 Assessment & Plan Assessment & Plan (1) Urinary urgency: Code(s): R39.15 - Urgency of urination Category: Medical (2) Urinary hesitancy: Code(s): R39.11 - Hesitancy of micturition Category: Medical (3) Nocturia more than twice per night: Code(s): R35.1 - Nocturia Category: Medical (4) BPH (benign prostatic hyperplasia): Code(s): N40.0 - Benign prostatic hyperplasia without lower urinary tract symptoms Category: Medical Plan In office urinalysis results reviewed with the patient today; as noted above. PVR 130 mL. Discussed at length potential causes for lower urinary tract symptoms patient is experiencing. Start Flomax as discussed and prescribed. Stop tolterodine. Discussed bladder triggers/irritants. Discussed importance of limiting fluids 2-3 hours prior to bed to decrease episodes of nocturia. Discussed attempting to sit when voiding to relax pelvis and assist with incomplete bladder emptying. Discussed possible near future urodynamics for further assessment evaluation. Follow-up in 6-8 weeks with PVR; or sooner with any issues, concerns, and or questions. Orders: Orders AMB Urinalysis Automated Today Z13.9 - Encounter for screening, unspecified AMB Post Void Residual by ultrasound Today R39.15 - Urgency of urination Prostate Specific Antigen Today N40.0 - Benign prostatic hyperplasia without lower urinary tract symptoms Medications: New tamsulosin 0.4 mg PO BEDTIME 30 days 30 caps 1RF N40.1 - Benign prostatic hyperplasia with lower urinary tract symptoms, R35.1 - Nocturia Discontinued tolterodine ER Discontinued Reason: Doctor's Order 4 mg PO DAILY 30 days 30 caps 5RF N31.8 - Other neuromuscular dysfunction of bladder, N40.0 - Benign prostatic hyperplasia without lower urinary tract symptoms Patient Instructions: The patient had an opportunity to ask questions regarding the treatment plan. All questions were answered. Physical exam, labs, and imaging were discussed and reviewed in detail. As well as risks, benefits, and discussion of treatment choices. No major barriers to understanding were identified. The patient expressed understanding and agreement with the above treatment plan. The patient was made aware they should contact our office by phone for worsening of their current condition, the appearance of new symptoms, or with any questions or concerns. Compliance is encouraged with any medications and follow up testing that is ordered. It is a privilege to be allowed the opportunity to participate in? your urological care.? Again, if you have any questions or concerns If you have any questions or concerns please do not hesitate to contact me. The office is [phone]. This note is constructed using voice recognition software. While every effort has been made to ensure accuracy 21 dealer errors may have been included. Yours sincerely, BRIGID Bartlett Coding Level of Care Code Est Pt Level 4 (24331) Complex EM visit Add On G2211 Diagnoses Urinary urgency R39.15 Urinary hesitancy R39.11 Nocturia more than twice per night R35.1 BPH (benign prostatic hyperplasia) N40.0 CPT Codes Post Residual Void - PVR CPT Code: 87772-Rwlo Void Residual by ultrasound ([id number])
== END 2024-08-03 10:52 | disposition home or self-care (01) ==
PROVIDERS: PCP Internal Medicine; Visit Provider Nurse Practitioner Family
DX: R39.15 Urgency of urination (principal); R39.11 Hesitancy of micturition; R35.1 Nocturia; N40.0 Benign prostatic hyperplasia without lower urinary tract symptoms; Z13.9 Encounter for screening, unspecified
CPT/HCPCS: 99214; G2211

== ENCOUNTER → 2024-08-03 10:13 | Outpatient (BNVA) | payer MEDICARE, SELFPAY | PROVIDERS: PCP Internal Medicine; Visit Provider Nurse Practitioner Family | DX: N40.1 Benign prostatic hyperplasia with lower urinary tract symptoms (principal); R31.29 Other microscopic hematuria; R39.15 Urgency of urination; R35.1 Nocturia; R39.11 Hesitancy of micturition; N31.8 Other neuromuscular dysfunction of bladder | CPT/HCPCS: 51798; 81003; 99212 ==

== ENCOUNTER 2024-09-20 10:36 | Outpatient (AMB) | payer MEDICARE, SELFPAY ==
--- NOTE | 2024-09-20 10:36 | A.OFFVIS_ITS ---
Intake Visit Reasons: 2m follow up Intake Note: Patient presents today for a follow up microscopic hematuria, urgency, nocturia Urology Medications: Tamsulosin (taking 2 day) Allergies to Antibiotic: None Blood Thinner:None Post Void Residual: 86ml's Mixer Operator Tablets Required: No Accompanied by: Self / Same As Patient Allergies No Known Allergies Allergy (Verified 09/20/24 11:12) Medication List - Last Reconciled 09/20/24 by BRIGID Bartlett atorvastatin 20 mg PO DAILY losartan-hydrochlorothiazide 100-25 mg 1 tab PO DAILY meloxicam 7.5 mg PO DAILY tamsulosin 0.4 mg PO BEDTIME 30 days HPI Comments Details: Ramsey is a very pleasant 79 year old [place] male patient of Dr. Ordonez. He has a PMH of hypercholesteromia, BPH, GERD, and hypertension. He presents to the office today for a follow up of his lower urinary tract symptoms. Of note, patient s/p green light laser with Dr. Espana 06/19. In discussion with the patient today he reports noting significant improvement in lower urinary tract symptoms with Flomax that was prescribed during last office visit. He reports episodes of urinary urgency and frequency had been experiencing have significantly improved. He reports nocturia has also improved. In office urinalysis results reviewed with the patient today. PVR 86 mL. Previous workup has included a retroperitoneal ultrasound 01/21 bilateral kidneys with no hydronephrosis or renal calculi. Right kidney with mid pole 1.1 cm cyst with benign features. No follow up imaging recommended per radiology report. The bladder is well distended. Bilateral ureteral jets are demonstrated. Pre void bladder volume is approximately 345 mL. Postvoid bladder volume is approximately 200 mL. Prevoid bladder volume is 344 mL. Postvoid bladder volume is 205 mL. Prostate volume approximately 83 mL. We discussed at length potential causes of lower urinary tract symptoms patient is experiencing. We discussed importance of limiting fluids prior to bed to continue to decrease episodes of nocturia. We discussed potential causes and affects of incomplete bladder emptying. He otherwise denies incontinence, hematuria, dysuria, foul smelling urine, changes to urinary stream, flank pain, fever, and or chills. PSAs are as follows: 01/18 3.9, 04/18 3.5, 12/21 3.8 [facility] Medical History High cholesterol BPH (benign prostatic hyperplasia) GERD (gastroesophageal reflux disease) HTN (hypertension) Surgical History History of prostate surgery Hx of exploratory laparotomy History of laryngoscopy H/O colonoscopy Social History Are you a primary acute care surgeon to a significant other at home: Yes Do you presently have visiting nurse or other home services: No Patient Tobacco Use Status: Never used Tobacco Review of Systems Const Reports as per HPI Eyes Reports no additional complaints ENT Reports no additional complaints Card Reports as per HPI Resp Reports no additional complaints GI Reports as per HPI Reports as per HPI Musc Reports no additional complaints Neuro Reports no additional complaints Psych Reports no additional complaints Endo Reports no additional complaints Fortino/Lymph Reports no additional complaints Aller/Immun Reports no additional complaints Physical Exam Const General: cooperative, healthy appearing, comfortable, no acute distress, well developed, alert and awake Orientation/consciousness: patient oriented x3 Limitations: no limitations HEENT Head: Yes normal to inspection, Yes normocephalic and Yes atraumatic Ears: hearing grossly normal bilaterally Eyes General: appearance normal, both eyes and all related structures Neck Neck: Yes normal visual inspection and Yes trachea midline Chest Chest palpation & inspection: normal inspection of the chest Resp Effort & Inspection: normal respiratory effort and able to speak in complete sentences Cardio Rate: regular rate GI Inspection: Yes normal to inspection General: Yes no CVA tenderness Back/Spine/Pelvis Back: no CVA tenderness Skin General skin exam: no rashes or lesions noted Neuro General: patient oriented x3 Extrem General: Yes normal to inspection Psych Appearance: grossly normal and well kempt Mental Status: mental status grossly normal Speech and movement: Normal speech and movement present and Clear speech present Affect: normal affect Attitude: cooperative Thought process: Normal thought process present Thought content: Normal thought content present Insight: Fair insight present (Psych) Judgement: Fair judgement present (Psych) Office Procedures Post Void Residual Post Residual Void Post Void Residual (PVR): 86 [id number]-[id number] Void Residual by ultrasound Results AMB Urinalysis, Automated UA Leukoctes 0 Garrett/uL Last Edit by JBM Internationalsailaja Bradshaw on 09/20/24 11:06 UA Nitrite Last Edit by UrbanBoundmax on 09/20/24 11:06 UA Urobilinogen 0.2 mg/dL Last Edit by Stilnest on 09/20/24 11:06 UA Protein 30 mg/dL Last Edit by Stilnest on 09/20/24 11:06 UA pH 6.0 Last Edit by Stilnest on 09/20/24 11:06 UA Blood 0 Moo/uL Last Edit by Stilnest on 09/20/24 11:06 UA Specific [place] 1.020 Last Edit by Stilnest on 09/20/24 11:06 UA Ketone Negative Last Edit by Stilnest on 09/20/24 11:06 UA Bilirubin 0 mg/dL Last Edit by Stilnest on 09/20/24 11:06 UA Glucose 0 mg/dL Last Edit by Stilnest on 09/20/24 11:06 Results Reviewed Results Reviewed: Laboratory Last Values Urine pH (Auto) 6.0 09/20/24 11:04 Specific [place] (Auto) 1.020 09/20/24 11:04 Urine Protein (Auto) 30 mg/dL 09/20/24 11:04 Glucose (UA)(Auto) 0 mg/dL 09/20/24 11:04 Urine Ketones (Auto) Negative 09/20/24 11:04 Urine Blood (Auto) 0 Moo/uL 09/20/24 11:04 Urine Bilirubin (Auto) 0 mg/dL 09/20/24 11:04 Urine Urobilinogen (Auto) 0.2 mg/dL 09/20/24 11:04 Leukocyte Esterase (Auto) 0 Garrett/uL 09/20/24 11:04 Assessment & Plan Assessment & Plan (1) BPH (benign prostatic hyperplasia): Code(s): N40.0 - Benign prostatic hyperplasia without lower urinary tract symptoms Category: Medical Plan In office urinalysis results reviewed with the patient today; as noted above. PVR 86 mL. Continue Flomax; refill provided. He is happy with his current voiding parameters on 0.8 mg of Flomax. Discussed, educated, and stressed the importance of limiting fluids 2-3 hours prior to bed to decrease episodes of nocturia. Discussed bladder triggers/irritants. Will obtain PSA in 6 months. Follow-up in 6 months with lab and PVR; or sooner with any issues, concerns, and or questions. Orders: Orders AMB Post Void Residual by ultrasound Today R39.15 - Urgency of urination AMB Urinalysis Automated Today Z13.9 - Encounter for screening, unspecified Prostate Specific Antigen 6 Months N40.0 - Benign prostatic hyperplasia without lower urinary tract symptoms Medications: Changed From tamsulosin 0.4 mg PO BEDTIME 30 days 30 caps 1RF N40.1 - Benign prostatic hyperplasia with lower urinary tract symptoms, R35.1 - Nocturia To tamsulosin 0.8 mg (2 x 0.4 mg) PO BEDTIME 30 days 60 caps 6RF N40.1 - Benign prostatic hyperplasia with lower urinary tract symptoms, R35.1 - Nocturia Patient Instructions: The patient had an opportunity to ask questions regarding the treatment plan. All questions were answered. Physical exam, labs, and imaging were discussed and reviewed in detail. As well as risks, benefits, and discussion of treatment choices. No major barriers to understanding were identified. The patient expressed understanding and agreement with the above treatment plan. The patient was made aware they should contact our office by phone for worsening of their current condition, the appearance of new symptoms, or with any questions or concerns. Compliance is encouraged with any medications and follow up testing that is ordered. It is a privilege to be allowed the opportunity to participate in? your urological care.? Again, if you have any questions or concerns If you have any questions or concerns please do not hesitate to contact me. The office is [phone]. This note is constructed using voice recognition software. While every effort has been made to ensure accuracy esthetician/owner errors may have been included. Yours sincerely, BRIGID Bartlett Coding Level of Care Code Est Pt Level 3 (61262) Complex EM visit Add On G2211 Diagnoses BPH (benign prostatic hyperplasia) N40.0 CPT Codes Post Residual Void - PVR CPT Code: 47165-Qtfb Void Residual by ultrasound ([id number])
== END 2024-09-20 11:08 | disposition home or self-care (01) ==
PROVIDERS: PCP Internal Medicine; Visit Provider Nurse Practitioner Family
DX: Z13.9 Encounter for screening, unspecified (principal); N40.0 Benign prostatic hyperplasia without lower urinary tract symptoms
CPT/HCPCS: 99213; G2211

== ENCOUNTER → 2024-09-20 10:36 | Outpatient (BNVA) | payer MEDICARE, SELFPAY | PROVIDERS: PCP Internal Medicine; Visit Provider Nurse Practitioner Family | DX: N40.1 Benign prostatic hyperplasia with lower urinary tract symptoms (principal); R31.29 Other microscopic hematuria; R39.15 Urgency of urination; R35.1 Nocturia; N28.1 Cyst of kidney, acquired | CPT/HCPCS: 51798; 81003; 99212 ==

== ENCOUNTER 2024-11-29 10:06 | Outpatient (REF) | payer MEDICARE, SELFPAY ==
[2024-11-29 10:18] LABS: MANUAL DIFF FLAG NO
[2024-11-29 11:04] LABS: Basophils Absolute Auto 0.1 X10*3/uL (0.0-0.2); Eosinophils Absolute Auto 0.2 X10*3/uL (0.0-0.4); Eosinophils Percent Auto 3.1 % (0-4); Hematocrit 41.6 % (42.0-52.0); Hemoglobin 13.6 g/dl (14.0-18.0); Imm Gran Abs Auto 0.02 X10*3/uL (0.00-0.03); Imm Gran Pct Auto 0.3 % (0.0-0.4); Lymphocytes Absolute Auto 1.7 X10*3/uL (1.2-4.9); Lymphocytes Percent Auto 29.6 % (20-40); Mean Corpuscular HGB Conc 32.7 g/dl (31.0-36.0); Mean Corpuscular Hemoglobin 29.3 pg (27.0-33.0); Mean Corpuscular Volume 89.7 fL (80.0-98.0); Mean Platelet Volume 11.8 fL (9.4-12.4); Monocytes Absolute Auto 0.4 X10*3/uL (0.1-1.2); Monocytes Percent Auto 7.2 % (2-11); Neutrophils Absolute Auto 3.4 x10*3/uL (2.0-8.3); Neutrophils Percent Auto 58.8 % (45-73); Platelet Count 175 X10*3/uL (160-400); Red Blood Count 4.64 X10*6/uL (4.60-5.80); Red Cell Distribution Width 13.1 % (11.0-16.0); White Blood Count 5.9 X10*3/uL (4.8-10.8)
[2024-11-29 11:23] LABS: Alanine Aminotransferase 23 U/L (0-40); Albumin Level 4.1 g/dL (3.5-5.0); Alkaline Phosphatase 92 U/L (39-117); Anion Gap 9 (12-20); Aspartate Amino Transferase 27 U/L (5-37); Bilirubin Total 0.5 mg/dL (0.0-1.0); Blood Urea Nitrogen 22 mg/dL (9-16); Calcium 8.8 mg/dL (8.4-10.2); Carbon Dioxide 28 mmol/L (22-29); Chloride 107 mmol/L (96-108); Cholesterol 176 mg/dL (<200); Estimated Glomerular Filt Rate > 60; Glucose Random 97 mg/dL (60-115); HDL Cholesterol 56 mg/dL (>40); LDL Cholesterol Calculated 99 mg/dL (<100); Potassium 4.6 mmol/L (3.3-5.1); Sodium 139 mmol/L (135-145); Total Protein 6.9 g/dL (6.5-8.0); Triglycerides 106 mg/dL (<150)
== END 2024-11-29 10:07 | disposition home or self-care (01) ==
LOC: HO.LAB 10:06
PROVIDERS: PCP Internal Medicine; Visit Provider Internal Medicine
DX: E78.00 Pure hypercholesterolemia, unspecified (principal); I10 Essential (primary) hypertension; R32 Unspecified urinary incontinence; R35.1 Nocturia
CPT/HCPCS: 36415; 80053; 80061; 85025

== ENCOUNTER 2025-08-22 06:50 | Outpatient (REF) | payer MEDICARE, SELFPAY ==
--- OUTSIDE RECORDS SUMMARY | 2025-08-22 06:52 | XMS_ITS | Encounter Summary ---
Author Organization [facility] Address [address] [place] [address] Care Team Providers Care Job Site Supervisor Name Role Phone Lotus Camp MD Primary Care Provider [phone] Encounter Details Date Type Department Care Team (Late st Contact Info) Description 02/08/2025 Lab Requisition [facility] - Main Lab [address] [facility] [place] [address] Sha Sarmiento MD [address] [place] [address] Urinary tract infection, site not specified Social History Tobacco Use Types Packs/Day Years Used Date Smoking Tobacco: Former Cigarettes Q uit: 1994 Alcohol Use Standard Drinks/Week Comments Not Currently 0 (1 standard drink = 0.6 oz pur e alcohol) Interpersonal Safety Answer Date Record ed Physical Abuse 01/21/2025 Verbal Abuse 01/21/2025 Sex and Gender Information Value Date Recorded Sex Assigned at Male 01/17/2025 3:51 PM EST Legal Sex Male 6:14 PM EST Gender Identity Male 01/17/2025 3:51 PM EST Sexual Orientation Straight 01/17/2025 3: 51 PM EST documented as of this encounter Plan of Treatment Not on file documented as of this encounter Procedures Procedure Name Priority Date/Time Associated Diagnosis Comments CULTURE URINE Routine 02/08/2025 12:00 AM EDT Urinary tract infection, site not specified documented in this encounter Results * Culture urine (02/08/2025 12:00 AM EDT) Culture, Urine No growth 02/09/2025 1:14 PM EDT [facility] Urine Urine specimen obtained by clean catch procedure / Unknown 02/08/2025 02/08/2025 6:26 PM EDT us Sha Sarmiento MD LAB MICROBIOLOGY - GENER AL ORDERABLES Final Result [facility] [address] [place] [address], documented in this encounter Visit Diagnoses Diagnosis Urinary tract infection, site not specified documented in this encounter Care Teams Job Site Supervisor Relationship Specialty Start Date End Date Lotus Camp MD [facility] [address] PCP - General Internal Medicine 01/17/25 documented as of this encounter
--- OUTSIDE RECORDS SUMMARY | 2025-08-22 06:52 | XMS_ITS | Clinical Summary ---
Author Organization [address] Address [address] [place] [phone] Phone Care Team Providers Care Prosthodontist/Owner Name Role Phone Lotus Cmap MD Primary Care Provider Allergies No known active allergies Medications atorvastatin (LIPITOR) 40 mg tablet Take 1 tablet (40 mg total) by mouth 1 (one) time each day. 01/12/2024 Active tamsulosin (FLOMAX) 0.4 mg 24 hr capsule Take 1 capsule (0.4 mg total) by mouth 1 (one) time each day. 10/22/2024 Active losartan-hydroC HLOROthiazide (HYZAAR) 100-25 mg per tablet Take 1 tablet by mouth 1 (one) time each day. Active oxyCODONE (OXY-IR) 5 mg immediate release capsule Take 1 capsule (5 mg total) by mouth every 6 (six) hours if needed for severe pain. Max Daily Amount: 20 mg 15 capsule 01/22/2025 Active Active Problems Problem Noted Date Diagnosed Date HTN (hypertension) 01/21/2025 S/P TURP 01/21/2025 Surgical History Surgery Date Site/Laterality Comments TRANSURETHRAL RESECTION OF PROSTATE ABDOMINAL SURGERY BLEEDING ULCER Medical History Medical History Date Comments Hyperlipidemia Hypertension Social History Tobacco Use Types Packs/Day Years Used Date Smoking Tobacco: Former Cigarettes Q uit: 1994 Tobacco Cessation:Counseling Given: Not Answered Alcohol Use Standard Drinks/Week Comments Not Currently [...] Orientation Straight 01/17/2025 3: 51 PM EST Obstetrics History Last Filed Vital Signs Vital Sign Reading Time Taken Comments Blood Pressure 116/75 01/22/2025 7:40 AM EST Pulse 74 01/22/2025 7:40 AM EST Temperature 36.1 C (97 F) 01/22/2025 7:40 AM EST Respiratory Rate 17 01/22/2025 7:40 AM EST Oxygen Saturation 100% 01/22/2025 7:40 AM EST Inhaled Oxygen Concentration - - Weight 74.8 kg (165 lb) 01/21/2025 6:33 PM EST Height 165.1 cm (5' 5 ) 01/21/2025 6:33 PM EST Body Mass Index 27.46 01/21/2025 6:33 PM EST Plan of Treatment Health Maintenance Due Date Last Done Comments DTaP,Tdap,and Td Vaccines (1 - Tdap) 1966 Pneumococcal Vaccine: 50+ Years (1 of 1 - PCV) 1997 Zoster Vaccines (1 of 2) 1997 RSV Immunization Adult Patients (1 - 1-dose 75+ series) 2022 Depression Screening 11/28/2024 Cholesterol Screening (Lipid Panel) 12/22/2024 Hepatitis C Screening 12/22/2024 Medicare Annual Wellness Visit 12/22/2024 Social Influencers of Health Screening 12/22/2024 COVID-19 Vaccine (1 - 2023-2 5 season) 2025 Influenza Vaccine (#1) 2025 Falls Risk Assessment 01/22/2026 01/22/2025 Hypertension/CHF/CAD Annual BMP Blood Test 01/22/2026 01/22/2025, 01/21/2025 HIB Vaccines Aged Out No longer eligi ble based on patient's age to complete this topic HPV Vaccines Aged Out No longer eligi ble based on patient's age to complete this topic Hepatitis A Vaccines Aged Out No long er eligible based on patient's age to complete this topic Hepatitis B Vaccines Aged Out No long er eligible based on patient's age to complete this topic IPV Vaccines Aged Out No longer eligi ble based on patient's age to complete this topic MMR Vaccines Aged Out No longer eligi ble based on patient's age to complete this topic Meningococcal ACWY Vaccine Aged Out N o longer eligible based on patient's age to complete this topic Meningococcal B Vaccine Aged Out No l onger eligible based on patient's age to complete this topic RSV Immunization Patients Under 20 months Aged Out No longer eligible b ased on patient's age to complete this topic Varicella Vaccines Aged Out No longer eligible based on patient's age to complete this topic Procedures Procedure Name Priority Date/Time Associated Diagnosis Comments BASIC METABOLIC PANEL STAT 01/22/2025 8:10 AM EST from Last 3 Months or Most Recently Relevant to Health Maintenance Results * (ABNORMAL) Basic metabolic panel (01/22/2025 8:10 AM EST) Sodium 133 133 - 145 mmol/L LAB CHEMISTRY METHOD 01/22/2025 8:57 AM [facility] Potassium 4.0 3.5 - 5.5 mmol/L LAB CHEMISTRY METHOD 01/22/2025 8:57 AM [facility] Chloride 100 96 - 110 mmol/L LAB CHEMISTRY METHOD 01/22/2025 8:57 AM [facility] CO2 31 21 - 32 mmol/L LAB CHEMISTRY METHOD 01/22/2025 8:57 AM [facility] Anion Gap 2(L) 3 - 11 LAB CHEMISTRY METHOD 01/22/2025 8:57 AM [facility] Glucose 94 70 - 100 mg/dL LAB CHEMISTRY METHOD 01/22/2025 8:57 AM [facility] BUN 31(H) 5 - 25 mg/dL LAB CHEMISTRY METHOD 01/22/2025 8:57 AM [facility] Creatinine 1.34(H) 0.70 - 1.30 mg/dL LAB CHEMISTRY METHOD 01/22/2025 8:57 AM [facility] eGFR 55(L) >=60 mL/min/1. 73m2 LAB CHEMISTRY METHOD 01/22/2025 8:57 AM EST [facility] Comment:Calculation based on the Chronic Kidney Disease Epidemiology Collaboration (CKD-EPI) equation refit without adjustment for race. BUN/Creatinine Ratio 23.1 LAB CHEMISTRY METHOD 01/22/2025 8:57 AM EST [facility] Calcium 7.7(L) 8.5 - 10.5 mg/dL LAB CHEMISTRY METHOD 01/22/2025 8:57 AM EST [facility] Blood Venous blood specimen / Unknown Venipuncture / Unknown 01/22/2025 8:10 AM EST 01/22/2025 8:14 AM EST Yvonne HARDY LAB BLOOD ORDERABLES Final Result [facility] [address] [place] [address], from Last 3 Months or Most Recently Relevant to Health Maintenance Insurance [employer] Advance Directives * No CPR/Do Not Intubate (Latest Code Status on File) Date Activated Date Inactivated Comments 01/21/2025 10:04 PM 01/22/2025 3:21 PM This code s tatus was ascertained in the following way: Code status discussion: discussion with patient To update the patient's code status, place a code status order. Do not modify or discontinue any currently active code status orders. * Full Code - Confirmed Date Activated Date Inactivated Comments 01/21/2025 9:58 PM 01/21/2025 10:04 PM This code s tatus was ascertained in the following way: Code status discussion: discussion with patient To update the patient's code status, place a code status order. Do not modify or discontinue any currently active code status orders. * Full Code - Default Date Activated Date Inactivated Comments 01/21/2025 6:22 PM 01/21/2025 9:58 PM This is orde r is used when code status has not been discussed with the patient, or code status is otherwise unknown/unconfirmed To update the patient's code status, place a code status order. Do not modify or discontinue any currently active code status orders. Care Teams Prosthodontist/Owner Relationship Specialty Start Date End Date Lotus Camp MD [facility] [address] [place], [place] PCP - General Internal Medicine 01/17/25
--- OUTSIDE RECORDS SUMMARY | 2025-08-22 06:52 | XMS_ITS | Encounter Summary ---
Author Organization [facility] [address] Address [address] [place] [address] Care Team Providers Care Sql Database Developer Name Role Phone Lotus Camp MD Primary Care Provider [phone] Encounter Details Date Type Department Care Team (Late st Contact Info) Description 12/21/2024 Lab Requisition [facility] Lab [address] [place] [id number] Sha Sarmiento MD [address] [place] [address] Nocturia Social History Tobacco Use Types Packs/Day Years Used Date Smoking Tobacco: Never Assessed Sex and Gender Information Value Date Recorded Sex Assigned at Male 01/17/2025 3:51 PM EST Legal Sex Male 6:14 PM EST Gender Identity Male 01/17/2025 3:51 PM EST Sexual Orientation Straight 01/17/2025 3: 51 PM EST documented as of this encounter Plan of Treatment Not on file documented as of this encounter Procedures Procedure Name Priority Date/Time Associated Diagnosis Comments CULTURE URINE Routine 12/21/2024 12:00 AM EST Nocturia documented in this encounter Results * Culture urine (12/21/2024 12:00 AM EST) Culture, Urine No growth 12/22/2024 8:25 AM EST [facility] Urine Urine specimen from urethra / Unknown 12/21/2024 12/21/2024 12:33 PM EST us Sha Sarmiento MD LAB MICROBIOLOGY - GENER AL ORDERABLES Final Result [facility] ([facility] [address] [place] [address], documented in this encounter Visit Diagnoses Diagnosis Nocturia documented in this encounter Care Teams Sql Database Developer Relationship Specialty Start Date End Date Lotus Camp MD [address] PCP - General Internal Medicine 01/17/25 documented as of this encounter
[2025-08-22 07:21] LABS: MANUAL DIFF FLAG NO
[2025-08-22 07:38] LABS: Hematocrit 36.9 % (42.0-52.0); Hemoglobin 12.7 g/dl (14.0-18.0); Imm Gran Abs Auto 0.04 X10*3/uL (0.00-0.03); Imm Gran Pct Auto 0.5 % (0.0-0.4); Lymphocytes Absolute Auto 2.2 X10*3/uL (1.2-4.9); Mean Corpuscular HGB Conc 34.4 g/dl (31.0-36.0); Mean Corpuscular Hemoglobin 30.0 pg (27.0-33.0); Mean Corpuscular Volume 87.0 fL (80.0-98.0); NRBC Abs Auto 0.000 X10*3/uL (0.0-0.012); NRBC Pct Auto 0.0 /100WBC (0.0-0.2); Platelet Count 179 X10*3/uL (160-400); Red Blood Count 4.24 X10*6/uL (4.60-5.80); White Blood Count 8.2 X10*3/uL (4.8-10.8)
[2025-08-22 08:20] LABS: Alanine Aminotransferase 27 U/L (0-40); Albumin Level 4.3 g/dL (3.5-5.0); Alkaline Phosphatase 96 U/L (39-117); Anion Gap 11 (12-20); Aspartate Amino Transferase 28 U/L (5-37); Blood Urea Nitrogen 23 mg/dL (9-16); Calcium 8.7 mg/dL (8.4-10.2); Carbon Dioxide 27 mmol/L (22-29); Chloride 110 mmol/L (96-108); Cholesterol 197 mg/dL (<200); Estimated Glomerular Filt Rate > 60; HDL Cholesterol 54 mg/dL (>40); Potassium 4.7 mmol/L (3.3-5.1); Sodium 143 mmol/L (135-145); Total Protein 7.0 g/dL (6.5-8.0); Triglycerides 122 mg/dL (<150)
== END 2025-08-22 06:51 | disposition home or self-care (01) ==
LOC: HO.LAB 06:50
PROVIDERS: PCP Internal Medicine; Visit Provider Internal Medicine
DX: I10 Essential (primary) hypertension (principal); E78.00 Pure hypercholesterolemia, unspecified; L29.9 Pruritus, unspecified; Z68.26 Body mass index [BMI] 26.0-26.9, adult
CPT/HCPCS: 36415; 80053; 80061; 85025